=== PATIENT | female | born 1955 | race Caucasian/White ===

== ENCOUNTER → 2023-09-14 10:10 | Outpatient (BNVA) | payer MEDICARE, MEDICAID, SELFPAY | PROVIDERS: Family Provider Family Medicine; PCP Nurse Practitioner Family; Visit Provider Nurse Practitioner Family | DX: E11.9 Type 2 diabetes mellitus without complications (principal); R60.9 Edema, unspecified; Q84.5 Enlarged and hypertrophic nails; R09.02 Hypoxemia; E66.01 Morbid (severe) obesity due to excess calories | CPT/HCPCS: 80053; 80061; 83036; 85025 ==

== ENCOUNTER 2023-11-02 21:37 | Inpatient (IN) | payer MEDICARE, MEDICAID, SELFPAY ==
--- NOTE | 2023-11-02 21:46 | ECG_ITS ---
[facility] Test Date: 2023-11-02 Pat Name: Lizeth Adams Department: Room: Gender: Female Manager [employer]: : 1955 Requested By: Luke Kendrick Order Number: [id number] Reading MD: Alonso Montze M.D. Measurements Intervals [place] Rate: 125 P: 0 W[place]: 0 QRS: 179 QRSD: 113 T: -16 QT: 287 QTc: 414 Interpretive Statements ATRIAL FIBRILLATION WITH RAPID VENTRICULAR RESPONSE ANTEROLATERAL MYOCARDIAL INFARCTION , OF INDETERMINATE AGE [40+ ms Q WAVE IN I/aVL/V3-V6] Compared to ECG 01/26/2019 05:28:42 Myocardial infarct finding now present Sinus bradycardia no longer present Right-axis deviation no longer present T-wave abnormality no longer present Possible ischemia no longer present Electronically Signed On 11-03-2023 14:56:14 SERVICE ORDER EXPEDITER by Alonso Montez M.D. [id number]
--- NOTE | 2023-11-02 21:47 | XRR_ITS ---
PROCEDURE INFORMATION: Exam: XR Chest Exam date and time: 11/02/2023 10:33 PM Age: 68 years old Clinical indication: Dyspnea; Additional info: SOB TECHNIQUE: Imaging protocol: Radiologic exam of the chest. Views: 1 view. COMPARISON: CT angio chest PE protcl [id number] 01/26/2019 2:23 PM FINDINGS: Lungs: Right lung opacities and pleural effusion. Mild pulmonary vascular congestion. Pleural spaces: See Lungs finding. Heart/Mediastinum: Mild cardiomegaly. Bones/joints: No acute abnormality. XR/XR chest 1V portable [id number] IMPRESSION: 1. Right lung opacities and pleural effusion. Recommend CT for better evaluation. 2. Cardiomegaly and mild pulmonary vascular congestion.
--- NOTE | 2023-11-02 21:47 | ED_ITS ---
HPI - General Adult 2 General: Chief complaint: General Medical Stated complaint: not feeling well Time Seen by Provider: 11/02/23 21:39 History of Present Illness: 68-year-old morbidly obese fem deedee presented emergency room via EMS with vague complaints of not feeling well, diffuse body swelling and shortness of breath for the past few days. Patient also revealed some cough and described the cough as nonproductive cough denies any fever, chills, coughing up blood or vomiting blood. No known sick contact or recent foreign travel. Patient reveals history of congestive heart failure in the past but currently not taking Lasix as prescribed. She denies any abdominal pain nausea or vomiting and no diarrhea. Associated symptoms: Reports dyspnea; Deny chest pain, headache(s), malaise or palpitations Review of Systems 2 General: Reports: 10 or more systems reviewed and unremarkable except in HPI and below Const: Denies: fever(s), chills, body aches, change in appetite, change in weight, fatigue or malaise ENMT: Reports: throat pain Card: Reports: edema, swelling of feet/ankles and dyspnea on exertion; Denies: chest pain, palpitations or pre-syncope Resp: Reports: dyspnea and non-productive cough; Denies: wheezing, stridor, pain on inspiration, change in phlegm color or hemoptysis Musc: Denies: neck pain, back pain, extremity pain, extremity swelling or joint pain Neuro: Denies: headache(s) or numbness in extremities Psych: Denies: anxiety, depression, mood swings or panic attacks PFSH ED 2 PFSH: Medical History Type 2 diabetes mellitus Family History Father Diabetes mellitus, type 2 Grandmother Cancer paternal Social History Smoking and tobacco/nicotine status: current every day tobacco/nicotine user cigarettes Packs smoked per day: 1 Alcohol intake: never Substance/Drug Use: never Adopted: No Caregiver/support person: No Lives independently: Yes service: No Current occupational status: retired and disabled Current gender identity: Female Agree to transfusion: No Physical Exam 2 Const: COMMON NORMALS: no acute distress, average body habitus, patient oriented x3, no limitations, healthy appearing, alert and well nourished HENMT: COMMON NORMALS: normocephalic, atraumatic, hearing grossly normal bilaterally, external ears normal, EAC's normal, TM's normal bilaterally, Normal external nose present, Normal nasal mucous membranes and turbinates present, moist oral mucous membranes, oropharynx normal, dentition normal and gingiva normal HEAD & SCALP: normocephalic and atraumatic NOSE: Normal external nose present and Normal nasal mucous membranes and turbinates present E XTERNAL EAR: Yes external ears normal EXTERNAL AUDITORY CANAL: EAC's normal TYMPANIC MEMBRANE: TM's normal bilaterally Neck/C-Spine: COMMON NORMALS: no JVD Chest: COMMONS NORMALS: normal inspection of the chest, normal palpation of entire chest wall, normal inspection of the breasts and normal palpation of the breasts Breast/axilla inspection: Yes normal inspection of the breasts B REAST/AXILLA PALPATION: Yes normal palpation of the breasts Resp: COMMON NORMALS: percussion normal EFFORT & INSPECTION: No tachypneic, No stridor, No Actively coughing and No retractions AUSCULTATION: rales and diminished lung sounds on the right in the lower lung [place] PERCUSSION: p ercussion normal Cardio: COMMON NORMALS: no JVD, regular rate, S1 normal heart sound present, S2 normal heart sound present, No gallops present (Cardio), No clicks present (Cardio), No murmurs present (Cardio), No rub (Cardio) and Peripheral pulses 2+ throughout PALPATION: normal PMI RATE: regular rate and tachycardic R HYTHM: abnormal rhythm HEART SOUNDS: S1 normal heart sound present and S2 normal heart sound present PERIPHERAL PULSES: Peripheral pulses 2+ throughout GI: COMMON NORMALS: Normal to inspection, nondistended, normoactive bowel sounds present, Soft to palpation, non-tender, No hepatosplenomegaly present, no masses and no bruits INSPECTION: Yes Abdominal wall edema, Yes Anasarca and Yes abdominal distension PALPATION: Yes Soft to palpation and Yes No hepatosplenomegaly present Extremity: NARRATIVE EXTREMITY EXAM: Lower extremity with pitting edema +2 pitting edema diffusely. Neuro: COMMON NORMALS: patient oriented x3 SENSORIUM/ORIENTATION: Yes alert Skin: COMMON NORMALS: no rashes or lesions noted, no wounds, turgor normal, no jaundice, no petechiae and no mottling GENERAL SKIN EXAM: no rashes or lesions noted and turgor normal Course 2 Reevaluation(s): Reevaluation #1: Patient remained stable on 4 L of oxygen by nasal cannula. Patient responded very well to the Lasix. Consultations: Consultation #1: I discussed patient with the hospitalist will admit for further evaluation and treatment. Vital Signs: Vital signs: Vital Signs Temperature 97.5 F L 11/02/23 21:48 Pulse Rate 110 H 11/03/23 04:20 Respiratory Rate 18 11/03/23 04:20 Blood Pressure 146/89 11/03/23 04:20 Pulse Oximetry 90 11/03/23 04:20 Oxygen Delivery Me thod Nasal Cannula 11/03/23 04:20 Oxygen Flow Rate 4 11/03/23 04:20 MDM - General Adult Medical Decision Making Patient made comfortable emergency room and had extensive workup including CBC, CMP, cardiac enzymes, EKG, chest x-ray. Patient was treated with IV Lasix Kayexalate Cardizem bolus and a drip. Discussed patient with the hospitalist patient will be admitted for further evaluation and treatment. Patient heart rate did improved with current treatment. Differential Diagnosis CHF, pneumonia, dissection, COVID, abnormal electrolyte, pleural effusion, pneumonitis, Lab Data 11/02/23 21:59 11/02/23 21:59 Radiology Impressions Chest X-Ray 11/02/23 21:47 IMPRESSION: 1. Right lung opacities and pleural effusion. Recommend CT for better evaluation. 2. Cardiomegaly and mild pulmonary vascular congestion. Laboratory Results WBC 7.87 10^3/uL (3.29-11.43) 11/02/23 21:59 RBC 4.56 10^6/uL (3.85-5.65) 11/02/23 21:59 Hgb 13.40 g/dL (11.27-16.99) 11/02/23 21:59 Hct 45.1 % (36-47) 11/02/23 21:59 MCV 98.9 fl (85-98) H 11/02/23 21:59 MCH 29.4 pg (27-33) 11/02/23 21:59 MCHC 29.7 g/dL (30-55) L 11/02/23 21:59 RDW 15.9 % (12.1-15.1) H 11/02/23 21:59 Plt Count 320 10^3/cmm (157-399) 11/02/23 21:59 MPV 11.1 fL (7.4-10.4) H 11/02/23 21:59 Neut % (Auto) 76.3 % 11/02/23 21:59 Lymph % (Auto) 12.5 % 11/02/23 21:59 [place] % (Auto) 9.7 % 11/02/23 21:59 Eos % (Auto) 0.6 % 11/02/23 21:59 Baso % (Auto) 0.5 % 11/02/23 21:59 Neut # (Auto) 6.01 10^3/uL (1.8-7.7) 11/02/23 21:59 Lymph # (Auto) 1.0 10^3/uL (0.8-4.8) 11/02/23 21:59 [place] # (Auto) 0.8 10^3/uL (0.2-0.9) 11/02/23 21:59 Eos # (Auto) 0.1 10^3/uL (0.0-0.8) 11/02/23 21:59 Baso # (Auto) 0.0 10^3/uL (0.0-0.1) 11/02/23 21:59 Nucleated RBC % (auto) 0 % 11/02/23 21:59 Nucleated RBCs # 0.0 /100WBC 11/02/23 21:59 PT 14.70 SECONDS (12.1-14.9) 11/02/23 21:59 INR 1.12 (0.8-1.2) 11/02/23 21:59 APTT 30.9 SECONDS (23.9-36.7) 11/02/23 21:59 Sodium 135 mmol/L (136-145) L 11/02/23 21:59 Potassium 5.4 mmol/L (3.5-5.1) H 11/02/23 21:59 Chloride 98 mmol/L (98-107) 11/02/23 21:59 Carbon Dioxide 29 mmol/L (22-29) 11/02/23 21:59 Anion Gap 13.4 (5-19) 11/02/23 21:59 BUN 37 mg/dL (8-23) H 11/02/23 21:59 Creatinine 1.5 mg/dL (0.5-0.9) H 11/02/23 21:59 GFR Calculation 34.3 mL/min (90-130) L 11/02/23 21:59 Glucose 133 mg/dL (65-115) H 11/02/23 21:59 Estimat Average Glucose 140 11/02/23 21:59 Hemoglobin A1c 6.5 % (4.0-6.0) H 11/02/23 21:59 Calculated Osmolality 291 mOsm/kg (285-295) 11/02/23 21:59 Calcium 8.8 mg/dL (8.5-10.5) 11/02/23 21:59 Total Bilirubin 0.2 mg/dL (0.15-1.2) 11/02/23 21:59 AST 60 U/L (0-32) H 11/02/23 21:59 ALT 66 U/L (0-33) H 11/02/23 21:59 Alkaline Phosphatase 175 U/L (35-105) H 11/02/23 21:59 Troponin T Baseline 34 ng/L (0-10) H 11/02/23 21:59 Troponin T 120 Minute 36.81 ng/L (0-10) H 11/02/23 23:55 Delta Troponin T 2.81 ABS# (0-10) 11/02/23 23:55 NT-Pro-B Natriuret Pep 56699 pg/mL (0-125) H 11/02/23 21:59 Total Protein 6.3 g/dL (6.6-8.7) L 11/02/23 21:59 Albumin 3.4 g/dL (3.5-5.2) L 11/02/23 21:59 Globulin 2.9 g/dL (1.3-4.6) 11/02/23 21:59 Coronavirus 229E (PCR) Not detected (NOT DETECT) 11/02/23 22:26 Hepatitis A IgM Ab Non-reactive (Nonreactive) 11/02/23 21:59 Hep Bs Antigen Non-reactive (Nonreactive) 11/02/23 21:59 Hep Bs Antibody < 3.5 (11.5-1000) L 11/02/23 21:59 Hep B Core Total Ab Non-reactive (Nonreactive) 11/02/23 21:59 Hepatitis C Antibody Non-reactive (Nonreactive) 11/02/23 21:59 SARS-CoV-2 (PCR) Not detected (NOT DETECT) 11/02/23 22:26 XR interpretation done by ED provider, pending radiology final review EKG Data EKG 1: Interpretation: Atrial fibrillation with RVR with rate of 125. QRS duration 131 QT [address] changes. Computer generated interpretation: Chest X-Ray 11/02/23 21:47 IMPRESSION: 1. Right lung opacities and pleural effusion. Recommend CT for better evaluation. 2. Cardiomegaly and mild pulmonary vascular congestion. Critical Care Time 2 Critical Care Time: Critical Care Time: Yes Total Critical Care Time: 40 Attestation: Time spent managing patient emergency room including giving IV Cardizem bolus and drip. Time spent reviewing past medical history. Time spent discussing patient with the hospitalist. Time spent reevaluating patient after each treatment. Discharge Plan Discharge Patient Disposition: Admitted As Inpatient Admit Provider: Chanelle Bruner Clinical Impression: Morbid obesity, Anasarca, Transaminitis Atrial fibrillation Qualifiers: Atrial fibrillation type: persistent (not longstanding) Qualified Code(s): I 48.19 - Other persistent atrial fibrillation CHF (congestive heart failure) Qualifiers: Heart failure chronicity: acute on chronic Condition: Stable Coding Level of Care Code ED Classified Advertising Supervisor for Brenda Snow
[2023-11-02 21:48] VITALS: BP 120/86; PULSE 119; RESP 16; TEMP 36.4; O2SAT 91
[2023-11-02] MEDS: FUROsemide 10 mg/mL SDV 10mL 60 MG IVP (22:20)
[2023-11-02 22:24] VITALS: BP 120/104; PULSE 123; RESP 24; O2SAT 92
[2023-11-02 22:26] LABS: Basophils % 0.5 %; Eosinophils # 0.1 10^3/uL (0.0-0.8); Eosinophils % 0.6 %; Hematocrit 45.1 % (36-47); Lymphocytes % 12.5 %; Mean Corpuscular HGB Conc 29.7 g/dL (30-55); Mean Corpuscular Hemoglobin 29.4 pg (27-33); Mean Corpuscular Volume 98.9 fl (85-98); Mean Platelet Volume 11.1 fL (7.4-10.4); Monocytes # 0.8 10^3/uL (0.2-0.9); Monocytes % 9.7 %; Neutrophils # 6.01 10^3/uL (1.8-7.7); Neutrophils % 76.3 %; Nucleated Red Blood Cells % 0 %; Platelet Count 320 10^3/cmm (157-399); Red Blood Count 4.56 10^6/uL (3.85-5.65); Red Cell Distribution Width 15.9 % (12.1-15.1); White Blood Count 7.87 10^3/uL (3.29-11.43)
[2023-11-02 22:30] VITALS: BP 121/63; PULSE 122; RESP 20; O2SAT 95
[2023-11-02] MEDS: dilTIAZem 5 mg/mL SDV 5 mL 20 MG IVP (22:43)
[2023-11-02 22:48] LABS: Troponin(5th) Baseline 34 ng/L (0-10)
[2023-11-02 22:49] LABS: INR 1.12 (0.8-1.2)
[2023-11-02 22:50] LABS: Partial Thromboplastin Time 30.9 SECONDS (23.9-36.7)
[2023-11-02 22:57] LABS: Alanine Aminotransferase 66 U/L (0-33); Albumin Level 3.4 g/dL (3.5-5.2); Alkaline Phosphatase 175 U/L (35-105); Anion Gap 13.4 (5-19); Aspartate Amino Transferase 60 U/L (0-32); Blood Urea Nitrogen 37 mg/dL (8-23); Calcium 8.8 mg/dL (8.5-10.5); Carbon Dioxide 29 mmol/L (22-29); Chloride 98 mmol/L (98-107); Globulin 2.9 g/dL (1.3-4.6); Glomerular Filtration Rate 34.3 mL/min (90-130); Glucose 133 mg/dL (65-115); NT Pro B Type Natriuretic Pept 16612 pg/mL (0-125); Osmolality Calculated 291 mOsm/kg (285-295); Potassium 5.4 mmol/L (3.5-5.1); Sodium 135 mmol/L (136-145); Total Bilirubin 0.2 mg/dL (0.15-1.2); Total Protein 6.3 g/dL (6.6-8.7)
[2023-11-03] VITALS (81 sets, daily range): BP systolic 83–148; BP diastolic 46–98; PULSE 70–120; RESP 0–28; TEMP 35.8–36.3; O2SAT 76–100; BMI 43.6
[2023-11-03 00:14] LABS: Adenovirus Not Detected (NOT DETECT); Chlamydia Pneumoniae Not Detected (NOT DETECT); Coronavirus 229E,HKU1,NL63,OC4 Not Detected (NOT DETECT); Human Metapneumovirus Not Detected (NOT DETECT); Human Rhinovirus/Enterovirus Not Detected (NOT DETECT); Influenza A Not Detected (NOT DETECT); Influenza A H1 Not Detected (NOT DETECT); Influenza A H1-2009 Not Detected (NOT DETECT); Influenza A H3 Not Detected (NOT DETECT); Influenza B Not Detected (NOT DETECT); Mycoplasma Pneumoniae Not Detected (NOT DETECT); Parainfluenza Virus Type 1 Not Detected (NOT DETECT); Parainfluenza Virus Type 2 Not Detected (NOT DETECT); Parainfluenza Virus Type 3 Not Detected (NOT DETECT); Parainfluenza Virus Type 4 Not Detected (NOT DETECT); Respiratory Syncytial Virus A Not Detected (NOT DETECT); Respiratory Syncytial Virus B Not Detected (NOT DETECT); SARS-COV-2 Not Detected (NOT DETECT)
[2023-11-03] MEDS: dilTIAZem 100 MG in sodium chloride 0.9% (add-van) 100 ML IV (00:17)
[2023-11-03 00:21] LABS: Troponin 5 2HR 36.81 ng/L (0-10); Troponin 5 2HR Delta 2.81 ABS# (0-10)
[2023-11-03] MEDS: sodium polystyrene sulfonate 15 gm/60 mL Btl PO (01:15)
--- NOTE | 2023-11-03 03:23 | USCV_ITS ---
Lizeth Adams Age: 68 Gender: F : 1955 Exam Date: 11/03/2023 03:46 Ordering Phys: Chanelle Bruner MD Technologist: MIR Exam Location: [facility] [place] Indication: new Afib, CHF. morbid obesity. No history of cardiac intervention per patient. BP: 91 / 70 HR: 55 Rhythm: Atrial fibrillation Technical Quality: Adequate with [employer] MEASUREMENTS (Male / Female) Normal Values 2D ECHO LV Diastolic Diameter PLAX 4.9 cm 4.2 - 5.9 / 3.9 - 5.3 cm LV Systolic Diameter PLAX 4.0 cm IVS Diastolic Thickness 1.5 cm 0.6 - 1.0 / 0.6 - 0.9 cm IVS Systolic Thickness 1.7 cm LVPW Diastolic Thickness 1.1 cm 0.6 - 1.0 / 0.6 - 0.9 cm LVPW Systolic Thickness 1.4 cm LVOT Diameter 1.6 cm LV Ejection Fraction 2D Teich 40.5 % LV Ejection Fraction MOD 2C 54.0 % LV Ejection Fraction 2C AL 53.3 % LA Diameter 5.1 cm LA Width 5.3 cm LA Height 6.3 cm RA Width 6.0 cm RA Height 6.2 cm Aorta at Sinotubular Diameter 2.7 cm IVC Diameter 2.9 cm M-MODE Aortic Annulus Diameter 2.5 cm LA Ao Ratio MM 2.0 MV E Point Septal Separation 0.8 cm DOPPLER AV Peak Velocity 139.0 cm/s LVOT Peak Velocity 65.0 cm/s AV Area Cont Eq vti 1.2 cm squared AV Area Cont Eq pk 1.0 cm squared MV Area PHT 5.1 cm squared MV E' Velocity 88.5 cm/s Mitral E to MV E' Ratio 16.3 Mitral E to LV E' Lateral Ratio 13.3 Mitral E to LV E' Septal Ratio 21.4 TR Peak Velocity 264.3 cm/s TR Peak Gradient 27.9 mmHg TV Peak E Velocity 45.0 cm/s Right Atrial Pressure 15.0 mmHg Pulmonary Artery Systolic Pressu 42.9 mmHg PV Peak Velocity 106.0 cm/s FINDINGS Left Ventricle Left ventricle is normal in size. LV systolic function is normal with EF 50 to 55%. No regional wall motion abnormalities are seen. Right Ventricle Dilated and mildly hypokinetic Right Atrium Dilated Left Atrium Dilated Mitral Valve Severe mitral annular calcification. Aortic Valve Aortic valve is thickened. No significant stenosis. Tricuspid Valve Mild tricuspid regurgitation. RVSP is 50-55mmHg. This is consistent with moderate pulmonary hypertension. Pulmonic Valve Mild pulmonic regurgitation. Pericardium Normal Aorta Normal in size IVC Dilated CONCLUSIONS LV systolic function is normal with EF 50 to 55%. RV is dilated and mildly hypokinetic. Severe biatrial enlargement. Severe mitral annular calcification Mild tricuspid regurgitation. Moderate pulmonary hypertension Mild pulmonic regurgitation. IVC is dilated. Compared to prior echocardiogram from 2019, LV systolic function has decreased. RV is also dilated and hypokinetic now with moderate pulmonary hypertension Alonso Montez MD (Electronically Signed) Final Date: 03 November 2023 16:55 S
--- NOTE | 2023-11-03 03:26 | P.HP_ITS ---
Providers/Chief Complaint 2 Admitting Physician: Chanelle Bruner MD Primary Care Provider: Moshe Roberson Chief Complaint: not feeling well History of Present Illness Lizeth Adams is a 68 year old female With a past medical history of diabetes mellitus, prescribed metformin but doesnt take it, COPD, not typically on inhalers or home oxygen, presents to the hospital with 1 to 2 months of worsening dyspnea. Patient states that at baseline she ambulates with a walker but recently because of worsening dyspnea she has barely been able to get out of bed and take a few steps. She also has orthopnea, unable to lie flat, sits in a recliner most of the day. She has checked her oxygen via pulse oximetry at home and states that it usually ranges in the 80s at rest. She often has to take multiple deep breaths to get her oxygenation to reach about 90%. She presented to the emergency room today because of worsening shortness of breath, states that she was not able to catch her breath even at rest today. Also felt palpitations. Upon ER arrival she was found to be in A-fib with RVR with heart rate ranging between 1 20-1 40s. She received a Cardizem push and was started on Cardizem infusion. She has overall gross anasarca. She reports a chronic lower extremity swelling, also worsened over the last 2 months. Denies any cough fever or chills. She is a chronic smoker, smokes about a pack every day. Review of Systems 2 General: Reports: 10 or more systems reviewed and unremarkable except in HPI and below Const: Denies: fever(s), chills or body aches Eyes: Denies: change in vision, blurry vision or photophobia ENMT: Reports: hoarseness; Denies: throat pain, enlarged tonsils, odynophagia or nasal congestion Card: Denies: chest pain, palpitations, irregular heart rhythm, edema, swelling of feet/ankles, lightheadedness, pre-syncope, dyspnea on exertion or orthopnea Resp: Denies: dyspnea, productive cough, non-productive cough, wheezing, stridor, pain on inspiration, change in phlegm color, hemoptysis or chest congestion GI: Denies: abdominal pain, nausea, vomiting, hematemesis, coffee ground emesis, dysphagia, heartburn, diarrhea, constipation, GI cramping, change in stool character, hematochezia or melena : Denies: flank pain, difficulty voiding, dysuria, urinary frequency, urinary urgency, urinary hesitancy or hematuria Musc: Denies: neck pain, back pain, extremity pain, joint swelling, joint warmth or deformity Neuro: Denies: headache(s), numbness in extremities, weakness in extremities, sensory changes, difficulty walking, frequent falls, dizziness, vertigo, behavioral changes, Slurred speech present or seizure-like activity Psych: Denies: anxiety, depression, suicidal ideation or homicidal ideation Endo: Denies: polyuria, polydipsia, tired all the time, cold intolerance or hot flashes Will/Lymph: Denies: easy bruising or easy bleeding Medications/Allergies Home Medications Medication Instructions Recorded Confirmed Last Taken Type aspirin 325 mg tablet See Rx Instructions PO BID 09/14/23 09/14/23 Unknown History bisacodyl 5 mg tablet,delayed 5 mg PO DAILY 09/14/23 09/14/23 Unknown History release (Laxative (bisacodyl)) Allergies Allergy/AdvReac Type Severity Reaction Status Date / Time iodine Allergy Unknown Verified 11/02/23 22:58 PFSH Acute 2 PFSH: Medical History Type 2 diabetes mellitus Family History Father Diabetes mellitus, type 2 Grandmother Cancer paternal Social History Smoking and tobacco/nicotine status: current every day tobacco/nicotine user cigarettes Packs smoked per day: 1 Alcohol intake: never Substance/Drug Use: never Adopted: No Caregiver/support person: No Lives independently: Yes service: No Current occupational status: retired and disabled Current gender identity: Female Agree to transfusion: No Vitals/I&O/Wt Last Vital Signs Temp 97.5 F L 11/02/23 21:48 Pulse 111 H 11/03/23 02:25 Resp 17 11/03/23 00:00 BP 91/70 11/03/23 00:00 Pulse Ox 96 11/03/23 00:00 O2 Del Method Nasal Cannula 11/03/23 00:45 O2 Flow Rate 4 11/02/23 22:24 11/02/23 11/02/23 11/03/23 14:59 22:59 06:59 Intake Total 4.417 / 4.417 Balance 4.417 / 4.417 Weight last 48 hrs Weight 141.974 kg Weight 136.078 kg Physical Exam 2 Narrative: General: AO x3, tachypneic with minimal conversation HEENT: PERRLA, pupils bilaterally equal and reactive, pallors not present Chest: Bilateral crackles and wheezing to auscultation CVS: S1-S2 regular, no murmurs, no tachycardia, no gallops, no rubs Abdomen: Soft, nontender, no organomegaly, bowel sounds present Neuro: No focal deficits, no facial deformity, AO x3, power 5/5 in all limbs Extremities: Bilateral lower extremity pitting edema Data 11/02/23 21:59 11/02/23 21:59 Other Labs: Radiology Impressions Chest X-Ray 11/02/23 21:47 IMPRESSION: 1. Right lung opacities and pleural effusion. Recommend CT for better evaluation. 2. Cardiomegaly and mild pulmonary vascular congestion. Laboratory Results WBC 7.87 10^3/uL (3.29-11.43) 11/02/23 21:59 RBC 4.56 10^6/uL (3.85-5.65) 11/02/23 21:59 Hgb 13.40 g/dL (11.27-16.99) 11/02/23 21:59 Hct 45.1 % (36-47) 11/02/23 21:59 MCV 98.9 fl (85-98) H 11/02/23 21:59 MCH 29.4 pg (27-33) 11/02/23 21:59 MCHC 29.7 g/dL (30-55) L 11/02/23 21:59 RDW 15.9 % (12.1-15.1) H 11/02/23 21:59 Plt Count 320 10^3/cmm (157-399) 11/02/23 21:59 MPV 11.1 fL (7.4-10.4) H 11/02/23 21:59 Neut % (Auto) 76.3 % 11/02/23 21:59 Lymph % (Auto) 12.5 % 11/02/23 21:59 [place] % (Auto) 9.7 % 11/02/23 21:59 Eos % (Auto) 0.6 % 11/02/23 21:59 Baso % (Auto) 0.5 % 11/02/23 21:59 Neut # (Auto) 6.01 10^3/uL (1.8-7.7) 11/02/23 21:59 Lymph # (Auto) 1.0 10^3/uL (0.8-4.8) 11/02/23 21:59 [place] # (Auto) 0.8 10^3/uL (0.2-0.9) 11/02/23 21:59 Eos # (Auto) 0.1 10^3/uL (0.0-0.8) 11/02/23 21:59 Baso # (Auto) 0.0 10^3/uL (0.0-0.1) 11/02/23 21:59 Nucleated RBC % (auto) 0 % 11/02/23 21:59 Nucleated RBCs # 0.0 /100WBC 11/02/23 21:59 PT 14.70 SECONDS (12.1-14.9) 11/02/23 21:59 INR 1.12 (0.8-1.2) 11/02/23 21:59 APTT 30.9 SECONDS (23.9-36.7) 11/02/23 21:59 Sodium 135 mmol/L (136-145) L 11/02/23 21:59 Potassium 5.4 mmol/L (3.5-5.1) H 11/02/23 21:59 Chloride 98 mmol/L (98-107) 11/02/23 21:59 Carbon Dioxide 29 mmol/L (22-29) 11/02/23 21:59 Anion Gap 13.4 (5-19) 11/02/23 21:59 BUN 37 mg/dL (8-23) H 11/02/23 21:59 Creatinine 1.5 mg/dL (0.5-0.9) H 11/02/23 21:59 GFR Calculation 34.3 mL/min (90-130) L 11/02/23 21:59 Glucose 133 mg/dL (65-115) H 11/02/23 21:59 Calculated Osmolality 291 mOsm/kg (285-295) 12/28/23 21:59 Calcium 8.8 mg/dL (8.5-10.5) 11/02/23 21:59 Total Bilirubin 0.2 mg/dL (0.15-1.2) 11/02/23 21:59 AST 60 U/L (0-32) H 11/02/23 21:59 ALT 66 U/L (0-33) H 11/02/23 21:59 Alkaline Phosphatase 175 U/L (35-105) H 11/02/23 21:59 Troponin T Baseline 34 ng/L (0-10) H 11/02/23 21:59 Troponin T 120 Minute 36.81 ng/L (0-10) H 11/02/23 23:55 Delta Troponin T 2.81 ABS# (0-10) 11/02/23 23:55 NT-Pro-B Natriuret Pep 30250 pg/mL (0-125) H 11/02/23 21:59 Total Protein 6.3 g/dL (6.6-8.7) L 11/02/23 21:59 Albumin 3.4 g/dL (3.5-5.2) L 11/02/23 21:59 Globulin 2.9 g/dL (1.3-4.6) 11/02/23 21:59 Coronavirus 229E (PCR) Not detected (NOT DETECT) 11/02/23 22:26 SARS-CoV-2 (PCR) Not detected (NOT DETECT) 11/02/23 22:26 A&P Assessment and plan (1) CHF (congestive heart failure): Qualifiers: Heart failure chronicity: acute on chronic (2) Atrial fibrillation: Qualifiers: Atrial fibrillation type: persistent (not longstanding) Qualified Code(s): I48.19 - Other persistent atrial fibrillation (3) Morbid obesity: (4) Transaminitis: (5) Uncontrolled diabetes mellitus: (6) Hypoxia: (7) Anasarca: Plan 68-year-old lady with a past medical history of diabetes mellitus, reported history of COPD presenting to the ER today with 2 months of worsening dyspnea and anasarca. Clinically patient appears to have decompensated heart failure. Elevated BNP and chest x-ray with bilateral pulmonary edema and pleural effusion. Unable to comment on the type of chronicity at this time as this is a new diagnosis for the patient. Check echocardiogram Received Lasix 60 mg IV push in the emergency room, continue 40 mg IV every 12 hours. Bautista catheter has been placed to measure accurate output. Monitor kidney function closely. EKG today showing A-fib with RVR with heart rate ranging between 1 20-1 40 for which patient has been started on Cardizem gtt. which we will continue. Start overlap with p.o. metoprolol for control of heart rate Check echocardiogram Baseline troponin at 34, 2 hours at 36 without significant delta at 2 hours. Pending 6-hour trend. [id number] 2 score at 4 based on currently known risk factors, start full dose anticoagulation with Lovenox 1 mg/kg subcutaneously every 12 hours. Likely transition to DOAC's once closer to discharge. Noted to have bilateral wheezing on exam, suspect this may be related to pulmonary edema but patient also reports a history of COPD. Add DuoNeb scheduled nebulization Supplemental O2 to keep saturation 90 to 92%. Currently needing 4 L/min supplemental O2. Possible that obesity hypoventilation may additionally be contributing to her hypoxia. Current BMI at 43. Check HbA1c and TSH insulin sliding scale DVT prophylaxis: Currently on full dose anticoagulation Full code Attestations 2 Medical Necessity Statement*: Greater than 2 midnight admission is anticipated for management of A-fib with RVR, newly diagnosed heart failure, need for IV diuresis and further cardiac evaluation. Coding Level of Care Code Acute Code for Chg Fwd High MDM includes number and complexity of problems actively addressed during encounter, amount and/or complexity of data reviewed/ordered and described risk of complication, morbidity or mortality of management as documented Diagnoses CHF (congestive heart failure) I50.9 Heart failure chronicity: acute on chronic Atrial fibrillation I48.19 Atrial fibrillation type: persistent (not longstanding) Morbid obesity E66.01 Transaminitis R74.01 Uncontrolled diabetes mellitus Hypoxia R09.02 Anasarca R60.1
[2023-11-03] MEDS: enoxaparin 80 mg/0.8 mL Syringe 140 MG SUBCUT (03:52)
[2023-11-03] MEDS: FUROsemide 10 mg/mL SDV 4mL 40 MG IVP (03:52)
[2023-11-03 03:53] LABS: Troponin 5 6HR 35.99 ng/L (0-10); Troponin 5 6HR Delta 1.99 ng/L (0-12)
[2023-11-03 04:06] LABS: Estmated Average Glucose 140; Hemoglobin A1C 6.5 % (4.0-6.0)
[2023-11-03 04:17] LABS: Hepatitis A Antibody IgM Non-Reactive (Nonreactive); Hepatitis B Core AB, Total Non-Reactive (Nonreactive); Hepatitis B Surface AB < 3.5 (11.5-1000); Hepatitis B Surface Antigen Non-Reactive (Nonreactive); Hepatitis C Virus Antibody Non-Reactive (Nonreactive)
[2023-11-03] MEDS: ipratropium-albuterol 3 mL Neb INHALATION ×2 (04:51→08:13)
[2023-11-03] MEDS: metoprolol tartrate 25 mg Tablet PO (04:55)
[2023-11-03] MEDS: perflutren protein-a microsphr 0.22 mg/mL SDV 3 mL IV (05:50)
[2023-11-03 07:41] LABS: Glucose Point of Care 112 mg/dL (70-110)
[2023-11-03 09:28] LABS: ABG PH Result 7.28 (7.35-7.45); Alveolar-Arterial Oxygen Gradi 13.7 mmHg (5-10); Base Excess ABG 1.5 mmol/L (-2.0-2.0); Blood Gas Allen Test Pos; Blood Gas Operator Identificat CAK; Blood Gas Sample Site Brachial, left; Blood Gas Sample Type Arterial; Carboxyhemoglobin 1.3 %THgb (0.4-20.1); HCO3 ABG 29.8 mmol/L (22-26); Ionized Calcium Level - ABG 1.1 mmol/L (1.1-1.4); Methemoglobin 0.3 % (0.4-1.5); Oxygen Device NC; Oxygen Saturation ABG 94.6; PO2 ABG 75.4 mmHg (80.0-100.0); PO2 FiO2 Ratio Arterial Blood 0; Potassium Level - ABG 4.7 mmol/L (3.5-5.0)
--- NOTE | 2023-11-03 09:47 | PC.NURSE ---
Upon morning assesment, patient can answer all orientation questions correctly and is alert. However, she is obviously confused. Repeated questioning, forgets what she is doing in the middle of tasks, forgot how to use her own cell phone. Nurse alerted Dr Suarez and received orders for blood gas.
[2023-11-03] MEDS: pantoprazole DR 40 mg Tablet PO (09:54)
[2023-11-03 10:42] LABS: Basophils # 0.1 10^3/uL (0.0-0.1); Basophils % 0.5 %; Eosinophils % 0.1 %; Hematocrit 45.8 % (36-47); Lymphocytes # 0.7 10^3/uL (0.8-4.8); Lymphocytes % 7.4 %; Mean Corpuscular HGB Conc 29.3 g/dL (30-55); Mean Corpuscular Hemoglobin 29.6 pg (27-33); Mean Corpuscular Volume 101.3 fl (85-98); Mean Platelet Volume 10.7 fL (7.4-10.4); Monocytes # 0.8 10^3/uL (0.2-0.9); Neutrophils # 7.56 10^3/uL (1.8-7.7); Neutrophils % 82.6 %; Nucleated Red Blood Cells % 0 %; Platelet Count 290 10^3/cmm (157-399); Red Blood Count 4.52 10^6/uL (3.85-5.65); Red Cell Distribution Width 15.8 % (12.1-15.1); White Blood Count 9.16 10^3/uL (3.29-11.43)
--- NOTE | 2023-11-03 10:43 | CTR_ITS ---
PROCEDURE INFORMATION: Exam: CT Chest Without Contrast; Diagnostic Exam date and time: 11/03/2023 12:19 PM Age: 68 years old Clinical indication: Other: Pna, hypoxia TECHNIQUE: Imaging protocol: Diagnostic computed tomography of the chest without contrast. Radiation optimization: All CT scans at this facility use at least one of these dose optimization techniques: automated exposure control; mA and/or kV adjustment per patient size (includes targeted exams where dose is matched to clinical indication); or iterative reconstruction. REPORTING DATA: Count of CT and Cardiac NM exams in prior 12 months: This patient has received 0 known CTs and 0 known cardiac nuclear medicine studies in the 12 months prior to the current study. COMPARISON: CR (CHEST, ) 11/02/2023 10:33 PM RADIATION DOSE METRICS: Total DLP (mGy-cm): 647.37 FINDINGS: Limitations: Motion artifact and beam hardening. Imaging did not occur during deep inspiration. Thyroid: Thyroid gland is not enlarged. Trachea: Imaged portions of the distal trachea, as well as right and left mainstem bronchi, are patent. Lungs: Imaged portions of the distal trachea as well as right and left mainstem bronchi are patent.2 there is severe volume loss in the right middle and lower lobe with atelectasis/consolidation noted. A 1.2 cm focal density abutting the pleural surface is present in the right lung apex (series 5, image 7) which may represent a nodule or airspace process. A newly demonstrated 7 mm left upper lobe nodule (series 5, image 13) is present immediately adjacent to the fissure and is also new from previous. A 6 mm somewhat nodular density is also present in the left lower lobe laterally at the costophrenic angle (series 5, image 34) new from previous. A 5 mm calcification is demonstrated in the left lingula and suggests a granuloma. However within the right lower lobe, opacity is confluent with the right hilum limiting assessment. Pleural spaces: A moderate-sized pleural effusion is present on the right with a proximally 3 cm depth posteriorly Heart: Cardiomegaly. Calcification is also associated with the mitral valve. No pericardial effusion. Coronary arteries: Coronary artery atherosclerotic calcification. Lymph nodes: A 1 cm right axillary node is present. There are similarly sized left axillary nodes and a 1 cm upper left posterior breast node or mass (series 4, image 20) further assessment by mammography is recommended. Within the limits of noncontrast technique, no definite mediastinal or hilar adenopathy is identified. Vasculature: The thoracic aorta is not enlarged but does demonstrate atherosclerotic calcification. Diaphragm: Small hiatal hernia. Intraperitoneal space: Limited assessment of the upper abdomen demonstrates moderate volume of free fluid in the perihepatic space. Bones/joints: Moderate upper thoracic kyphosis and moderate multilevel degenerative changes. Mild chronic appearing anterior wedge compression deformity of several adjacent midthoracic vertebral bodies. Soft tissues: The breasts are not visualized in their entirety but there is generalized increased attenuation noted throughout much of the right breast and axilla. CT/CT chest wo con [id number] IMPRESSION: 1. Moderate increased attenuation throughout the visualized right breast extending into the axilla which may relate to edema or inflammatory/neoplastic process. Correlation with clinical findings is recommended . Prominent bilateral axillary nodes, left breast 1 cm nodule or node. Mammography recommended. 2. Fairly marked volume loss within the right middle and lower lobes with opacities favored to represent atelectasis although pneumonia or other process can not be completely excluded. As this is confluent with the right hilum , it limits assessment for hilar adenopathy 3. Pulmonary nodules as noted above. For patients at low risk (minimal or absent history of smoking and of other known risk factors), recommend CT Chest at 3-6 months, then consider CT Chest at 18-24 months. For patients at high risk (history of smoking or of other known risk factors), recommend CT Chest at 3-6 months, then CT Chest at 18-24 months. (Reference: Shila) 4. Moderate-sized right-sided pleural effusion, contributing to middle and lower lobe atelectasis. Please see above additional comments References: Shila Palacios et al. Guidelines for Management of Incidental Pulmonary Nodules Detected on CT Images: From the Fleischner Society 2017. Radiology. 2017;284(1):228-243.
[2023-11-03] MEDS: heparin 5,000 unit/mL INJ 1 mL IV (11:21)
[2023-11-03 11:24] LABS: Alanine Aminotransferase 60 U/L (0-33); Albumin Level 3.1 g/dL (3.5-5.2); Alkaline Phosphatase 164 U/L (35-105); Aspartate Amino Transferase 46 U/L (0-32); Blood Urea Nitrogen 38 mg/dL (8-23); Calcium 8.5 mg/dL (8.5-10.5); Carbon Dioxide 25 mmol/L (22-29); Chloride 100 mmol/L (98-107); Globulin 3.7 g/dL (1.3-4.6); Glomerular Filtration Rate 31.9 mL/min (90-130); Glucose 169 mg/dL (65-115); Iron 28 ug/dL (37-145); Osmolality Calculated 297 mOsm/kg (285-295); Percent Saturation 9.7 % (20-50); Sodium 137 mmol/L (136-145); Thyroid Stimulating Hormone 3.02 uIU/mL (0.27-4.20); Total Bilirubin 0.4 mg/dL (0.15-1.2); Total Iron Binding Capacity 287 mcg/dl; Total Protein 6.8 g/dL (6.6-8.7); Unsaturated Iron Binding 259 ug/dL (112-347); Vitamin B12 1265 pg/mL (232-1245)
[2023-11-03] MEDS: heparin drip 25,000 UNIT/500 ML PREMIX 30 UNIT IV (11:24)
[2023-11-03] MEDS: sodium chloride 0.9% 1,000 ML 75 ML IV (11:26)
[2023-11-03 11:29] LABS: Anion Gap 17.1 (5-19); Potassium 5.1 mmol/L (3.5-5.1)
[2023-11-03] MEDS: budesonide 0.5 mg/2 mL Neb INHALATION ×2 (11:42→20:38)
[2023-11-03] MEDS: ipratropium 0.5 mg/2.5 mL Neb INHALATION ×3 (11:42→20:38)
--- NOTE | 2023-11-03 12:03 | P.PN_ITS ---
Subjective 2 Subjective: Admitted overnight. H&P and labs appreciated. Patient is about to be taken off Cardizem drip. Heart rate maintained in 70s. Blood pressures seem to be running in 90 systolics. Patient had episode of confusion today morning for which ABG was done which showed respiratory acidosis, hypercapnia a and hypoxia. Patient has had around 4 cc output overnight. Has remained afebrile. Blood work appreciated. Vitals/I&O/Wt Last Vital Signs Temp 97.3 F L 11/03/23 09:00 Pulse 73 11/03/23 11:44 Resp 23 H 11/03/23 11:43 BP 93/60 11/03/23 10:00 Pulse Ox 97 11/03/23 11:44 O2 Del Method BiPAP 11/03/23 11:43 O2 Flow Rate 4 11/03/23 09:00 FiO2 30 11/03/23 11:44 11/02/23 11/03/23 11/03/23 22:59 06:59 14:59 Intake Total 4.417 / 4.417 55.542 / 55.542 Output Total 400 / 400 Balance -395.583 / -395.583 55.542 / 55.542 Weight last 48 hrs Weight 141.974 kg Weight 141.974 kg Weight 136.078 kg Physical Exam 2 Narrative: General: No acute distress, AO x3, NC oxygen supplementation, morbidly obese HEENT: PERRLA, pupils bilaterally equal and reactive Chest: Bilateral bronchial breath sounds all over lung fleming, decreased air entry all over lung fleming with diffuse rhonchi Extremity: Bilateral lower limb swelling 1+ up to the knee, old skin changes present consistent with peripheral vascular disease CVS: S1-S2 regular, no murmurs, no tachycardia, no gallops, no rubs Abdomen: Soft, nontender, no organomegaly, bowel sounds present, morbidly obese Neuro: No focal deficits, no facial deformity, AO x3, power 5/5 in all limbs Data 11/03/23 10:20 11/03/23 10:20 A&P Assessment and plan (1) Respiratory acidosis: (2) Acute on chronic respiratory failure with hypoxia and hypercapnia: (3) COPD (chronic obstructive pulmonary disease): (4) Obstructive sleep apnea: (5) CHF (congestive heart failure): Qualifiers: Heart failure chronicity: acute on chronic (6) Atrial fibrillation: Qualifiers: Atrial fibrillation type: persistent (not longstanding) Qualified Code(s): I48.19 - Other persistent atrial fibrillation (7) Acute kidney injury: (8) Hyperkalemia: (9) Type 2 diabetes mellitus: (10) Morbid obesity: (11) Transaminitis: (12) Anasarca: Plan 68-year-old lady with a past medical history of diabetes mellitus, reported history of COPD presenting to the ER today with 2 months of worsening dyspnea and anasarca. Respiratory acidosis: Acute on chronic hypoxic and hypercapnic respiratory failure. Most likely in setting of COPD exacerbation, obstructive sleep apnea noncompliant to BiPAP/CPAP with possibility of congestive heart failure in setting of A-fib with RVR on admission. Patient looks vascularly depleted though does have components of fluid overload with lower limb edema. Patient does have DONNA with mild uremia. Check D-dimer, sputum culture, procalcitonin, urine Legionella, bacterial antigen. Check CT chest without contrast. BiPAP ventilation for now. Start on ipratropium, Xopenex every 6 hours, Pulmicort twice daily. Given diabetes for now we will try to avoid steroids. Will continue to monitor. Even if D-dimer is higher will try to avoid CTA for now given DONNA. Patient already on anticoagulation given atrial fibrillation. Atrial fibrillation: Currently rate controlled. Patient hypotensive. Hold off on Cardizem drip. Continue with metoprolol 25 mg twice daily. Start on midodrine 10 mg 3 times daily. Will discontinue midodrine once blood pressure is better. Isaac Vas score?4. Switch from full dose Lovenox to heparin drip given high body weight. Check echocardiogram. Acute kidney injury: Most likely component of CKD with mild worsening for now. Cardiorenal versus vascular depletion. Patient does have a component of diabetic nephropathy as well. Will give a trial of IV fluids with normal saline at 75 cc/h for 1 bag. Watch for fluid overload. Medical reconciliation done for nephrotoxic drugs. Monitor BMP daily for now. Hyperkalemia resolved for now. Type 2 diabetes mellitus: Patient noncompliant to antidiabetic medications. A1c 6.5. Insulin sliding scale low-dose protocol before meals and at bedtime. Carb consistent diet. Morbid obesity CODE STATUS: Discussed in detail with the patient. Patient does not want any intubation or life support or chest compression. Changed to DNR/DNI. Patient's daughter will be DPOA. Carb consistent cardiac diet Protonix for PUD prophylaxis Heparin drip will suffice for DVT prophylaxis. Attestations 2 Medical Necessity Statement*: Requires further hospitalization for management of respiratory acidosis, acute on chronic hypoxic and hypercapnic respiratory failure in setting of COPD, obstructive sleep apnea, congestive heart failure, atrial fibrillation with rapid ventricular response and DONNA on CKD Diagnoses Respiratory acidosis E87.29 Acute on chronic respiratory failure with hypoxia and hypercapnia J96.21; J96.22 COPD (chronic obstructive pulmonary disease) J44.9 Obstructive sleep apnea G47.33 CHF (congestive heart failure) I50.9 Heart failure chronicity: acute on chronic Atrial fibrillation I48.19 Atrial fibrillation type: persistent (not longstanding) Acute kidney injury N17.9 Hyperkalemia E87.5 Type 2 diabetes mellitus E11.9 Morbid obesity E66.01 Transaminitis R74.01 Anasarca R60.1
[2023-11-03 12:08] LABS: D Dimer 4.11 ug/mLFEU (0-0.59)
[2023-11-03 12:42] LABS: Glucose Point of Care 150 mg/dL (70-110)
[2023-11-03] MEDS: midodrine 5 mg TABLET 10 MG PO ×2 (12:45→16:31)
[2023-11-03] MEDS: insulin lispro 100 unit/1 mL SUBCUT ×3 (12:46→21:00)
--- NOTE | 2023-11-03 13:03 | PC.SOCIAL ---
Pg 2 IMM Explained to pt Pg 2 IMM. No questions voiced. Provided pt a copy. Initialed, dated, & timed a copy & placed in chart.
--- NOTE | 2023-11-03 14:22 | PC.NURSE ---
Protocol for heparin indicates to give 7000unit bolus and to start maintenance rate at 2050 units an hour. Due to patient's obesity and significant difference from ideal body weight, Dr orlando instructed nurse to give smaller bolus and lower starting maintenance rate than protocol, and then continue to titrate per protocol. See MAR for rates.
[2023-11-03] MEDS: levalbuterol 0.63 mg/3 mL Neb INHALATION ×2 (14:30→20:38)
[2023-11-03 15:40] LABS: Blood Urine 3+ (Negative); Glucose Urine UA Trace (Normal); Ketones Urine Negative (Negative); Nitrate Urine Negative (Negative); Protein Urine 3+ (Negative); Urine Appearance Cloudy (CLEAR); Urine Color Yellow (Yellow); pH Urine 5 (5-7)
[2023-11-03 15:41] LABS: Add Urine Culture? Yes; Add Urine Microscopic? YES; Amorphous Sediment Urine 2+ /hpf; Bacteria Urine TRACE /hpf; Bilirubin Urine 1+ (Negative); Leukocyte Esterase Urine Trace (Negative); RBC Urine TOO NUMEROUS TO CNT /hpf (0-2); Squamous Epithelial Cell Urine 0-4 /hpf (0-5); Urobilinogen Urine 4 mg/dL (Negative); WBC Urine 0-4 /hpf (0-5)
[2023-11-03 15:48] LABS: Urine Creatinine 201 mg/dL (28-217)
[2023-11-03 16:13] LABS: Eosinophil Urine No Eosinophils Seen; Urine Eosinophil Count 0 (0-0)
[2023-11-03 16:41] LABS: Glucose Point of Care 125 mg/dL (70-110)
[2023-11-03 16:41] LABS: Glucose Point of Care 167 mg/dL (70-110)
--- NOTE | 2023-11-03 17:03 | PC.NURSE ---
Patient has been on bipap since around 11am. Was off of bipap for briefly for lunch, and occasionally to oral meds. Nurse gave patient another break around 1600. Upon rounding again at 1630 patient is markedly more lethargic. Still able to answer orientation questions and able to protect her own airway, but she cannot stay awake for questioning, cannot hold head up. Nurse placed patient back on bipap and then alerted Dr orlando. Received order for ABG.
--- NOTE | 2023-11-03 17:22 | USR_ITS ---
PROCEDURE INFORMATION: Exam: US Duplex Lower Extremity Veins, Bilateral Exam date and time: 11/03/2023 5:54 PM Age: 68 years old Clinical indication: Edema, localized; Lower extremity, bilateral; Additional info: R/O dvt TECHNIQUE: Imaging protocol: Real-time duplex ultrasound of the bilateral extremities with 2-D acuna scale, color Doppler flow and spectral waveform analysis including responses to compression and other maneuvers (when performed) with image documentation. Complete exam focused on the lower extremity veins. COMPARISON: No relevant prior studies available. FINDINGS: Right deep veins: Unremarkable. The common femoral, femoral, proximal profunda femoral, popliteal, posterior tibial and peroneal veins are patent without thrombus. Normal Doppler waveforms. Normal compressibility and/or augmentation response. Left deep veins: Unremarkable. The common femoral, femoral, proximal profunda femoral, popliteal, posterior tibial and peroneal veins are patent without thrombus. Normal Doppler waveforms. Normal compressibility and/or augmentation response. Superficial veins: Bilateral saphenofemoral junctions are patent without thrombus. Soft tissues: Diffuse subcutaneous edema. US/[place] [id number] IMPRESSION: No sonographic evidence of deep vein thrombosis.
[2023-11-03 17:23] LABS: ABG PH Result 7.27 (7.35-7.45); Arterial Blood Gas Hematocrit 39.3 % (37-47); Base Excess ABG 2.3 mmol/L (-2.0-2.0); Blood Gas Allen Test Pos; Blood Gas Sample Type Arterial; HCO3 ABG 30.9 mmol/L (22-26); HGB O2 Sat 92.9 % (95-100); Ionized Calcium Level - ABG 1.1 mmol/L (1.1-1.4); Methemoglobin 0.5 % (0.4-1.5); Oxygen Saturation ABG 95.3; PO2 ABG 77.8 mmHg (80.0-100.0); Potassium Level - ABG 5.1 mmol/L (3.5-5.0); Total Hemoglobin 12.8 g/dL (12-16)
[2023-11-03 17:24] LABS: Alveolar-Arterial Oxygen Gradi 7.1 mmHg (5-10); Blood Gas Operator Identificat MONRO; Blood Gas Sample Site Radial, right; Oxygen Device BIPAP; PO2 FiO2 Ratio Arterial Blood 0
[2023-11-03 17:25] LABS: ABG PCO2 67.1 mmHg (35-45)
--- NOTE | 2023-11-03 18:23 | PC.NURSE ---
Addendum entered by Mikal Barksdale RN 11/03/23 18:31: SHift SUmmary: Uneventful shift .Patient was up to a chair for about 3 hours. Cardizem titrated off. Heparin drip started. Due to hypercapnia and associated confusion, bipap was started and titrated later in the day due to increased confusion. Total urine output over 12 hour shift has been 150mL (average 0.08ml/kg/hr), dark tea colored urine and physician is aware of low output. Original Note: SHift SUmmary: Uneventful shift .Patient was up to a chair for about 3 hours. Cardizem titrated off. Heparin drip started. Due to hypercapnia and associated confusion, bipap was started and titrated later in the day due to increased confusion.
[2023-11-03 18:38] LABS: ABG PH Result 7.27 (7.35-7.45); Arterial Blood Gas Hematocrit 39.3 % (37-47); Base Excess ABG 2.5 mmol/L (-2.0-2.0); Blood Gas Allen Test Pos; Blood Gas Sample Type Arterial; HCO3 ABG 31.1 mmol/L (22-26); HGB O2 Sat 94.2 % (95-100); Ionized Calcium Level - ABG 1.1 mmol/L (1.1-1.4); Methemoglobin 0.5 % (0.4-1.5); Oxygen Saturation ABG 96.6; PO2 ABG 84.6 mmHg (80.0-100.0); Potassium Level - ABG 4.9 mmol/L (3.5-5.0); Total Hemoglobin 12.8 g/dL (12-16)
[2023-11-03 18:39] LABS: Alveolar-Arterial Oxygen Gradi 6.2 mmHg (5-10); Blood Gas Operator Identificat MONRO; Blood Gas Sample Site Radial, right; Oxygen Device BIPAP; PO2 FiO2 Ratio Arterial Blood 0
[2023-11-03 18:51] LABS: ABG PCO2 67.1 mmHg (35-45)
[2023-11-03 18:56] LABS: Partial Thromboplastin Time 121.8 SECONDS (23.9-36.7)
[2023-11-03 18:58] LABS: Blood Urea Nitrogen 42 mg/dL (8-23); Calcium 8.4 mg/dL (8.5-10.5); Carbon Dioxide 22 mmol/L (22-29); Chloride 101 mmol/L (98-107); Glomerular Filtration Rate 29.7 mL/min (90-130); Glucose 159 mg/dL (65-115); Osmolality Calculated 298 mOsm/kg (285-295); Sodium 137 mmol/L (136-145)
[2023-11-03 19:17] LABS: Anion Gap 19.6 (5-19); Potassium 5.6 mmol/L (3.5-5.1)
[2023-11-03 19:53] LABS: Glucose Point of Care 147 mg/dL (70-110)
[2023-11-03] MEDS: norepinephrine 4 MG/250 ML BAG 7.5 MG IV (20:31)
[2023-11-03] MEDS: dextrose 50% syringe 50 mL IVP (20:34)
[2023-11-03] MEDS: methylPREDNISolone sod succ 40 mg/mL INJ IVP (20:35)
[2023-11-03] MEDS: FUROsemide 10 mg/mL SDV 10mL 100 MG IVP (20:37)
[2023-11-03] MEDS: insulin regular-human 10 UNIT in SYRINGE 1 EACH IVP (20:38)
[2023-11-03 21:05] LABS: Glucose Point of Care 172 mg/dL (70-110)
--- NOTE | 2023-11-03 21:50 | PC.NURSE ---
Dr. Aguayo orderd for levophed to be started at 2 mcg/min and to be kept at that rate maintaining the patient's blood pressure MAP above 70.
[2023-11-04] VITALS (73 sets, daily range): BP systolic 92–148; BP diastolic 43–100; PULSE 102–126; RESP 0–33; TEMP 35.9–36.8; O2SAT 80–99; BMI 59.1
[2023-11-04] MEDS: levalbuterol 0.63 mg/3 mL Neb INHALATION ×6 (00:12→20:29)
[2023-11-04] MEDS: ipratropium 0.5 mg/2.5 mL Neb INHALATION ×6 (00:12→20:29)
[2023-11-04] MEDS: ALPRAZolam 0.5 mg Tablet 0.25 MG PO (01:03)
[2023-11-04] MEDS: methylPREDNISolone sod succ 40 mg/mL INJ IVP ×3 (04:24→19:03)
[2023-11-04 04:46] LABS: Alanine Aminotransferase 50 U/L (0-33); Alkaline Phosphatase 150 U/L (35-105); Aspartate Amino Transferase 30 U/L (0-32); Blood Urea Nitrogen 42 mg/dL (8-23); Calcium 8.6 mg/dL (8.5-10.5); Carbon Dioxide 23 mmol/L (22-29); Chloride 99 mmol/L (98-107); Globulin 3.6 g/dL (1.3-4.6); Glomerular Filtration Rate 29.7 mL/min (90-130); Glucose 110 mg/dL (65-115); Osmolality Calculated 297 mOsm/kg (285-295); Sodium 138 mmol/L (136-145); Total Bilirubin 0.4 mg/dL (0.15-1.2); Total Protein 6.6 g/dL (6.6-8.7)
[2023-11-04 04:53] LABS: Anion Gap 20.9 (5-19); Potassium 4.9 mmol/L (3.5-5.1)
[2023-11-04 05:12] LABS: Basophils % 0.2 %; Hematocrit 43.5 % (36-47); Lymphocytes # 0.6 10^3/uL (0.8-4.8); Lymphocytes % 3.4 %; Mean Corpuscular HGB Conc 30.1 g/dL (30-55); Mean Corpuscular Volume 96.2 fl (85-98); Mean Platelet Volume 10.9 fL (7.4-10.4); Monocytes # 0.9 10^3/uL (0.2-0.9); Monocytes % 5.7 %; Neutrophils # 14.56 10^3/uL (1.8-7.7); Neutrophils % 90.1 %; Nucleated Red Blood Cells % 0 %; Platelet Count 334 10^3/cmm (157-399); Red Blood Count 4.52 10^6/uL (3.85-5.65); Red Cell Distribution Width 15.8 % (12.1-15.1); White Blood Count 16.15 10^3/uL (3.29-11.43)
[2023-11-04 05:28] LABS: Chol HDL Ratio 2.75 mg/dL (0.0-4.40); Cholesterol 162 mg/dL (0-200); HDL Cholesterol 59 mg/dL (60-100); LDL Cholesterol Calculated 88 mg/dL (50-129); Magnesium 2.5 mg/dL (1.7-2.3); Triglycerides 75 mg/dL (0-150); VLDL Cholestrol Calculation 15 mg/dL (0-30)
[2023-11-04 05:30] LABS: Estmated Average Glucose 134; Hemoglobin A1C 6.3 % (4.0-6.0)
[2023-11-04 05:41] LABS: Folate Level > 20.0 ng/mL (4.8-37.3)
[2023-11-04] MEDS: budesonide 0.5 mg/2 mL Neb INHALATION ×2 (07:27→20:29)
--- NOTE | 2023-11-04 08:03 | PC.NURSE ---
upon morning assessment, patient found to have a heart rate between 115-120, afib. Occaisonally jumping up to 140's briefly. NUrse alerted Dr doe. Received orders for amiodarone, lasix, and ABG
[2023-11-04 08:06] LABS: Glucose Point of Care 123 mg/dL (70-110)
[2023-11-04] MEDS: amiodarone 50 mg/mL SDV 3 mL 150 MG IVP (08:09)
[2023-11-04] MEDS: FUROsemide 10 mg/mL SDV 10mL 100 MG IVP (08:12)
[2023-11-04 08:30] LABS: Partial Thromboplastin Time 47.3 SECONDS (23.9-36.7)
--- NOTE | 2023-11-04 08:35 | PC.PHAR ---
Pharmacokinetic dosing service Date: 11/04/23 Time: 834 Objective: Patient: Lizeth Adams Floor: ICU-5 Age: 68 yo Serum creatinine: 1.7 mg/dL Height: 61.0 Inches Weight (kg): 141.975 Diagnosis: Relevant medical/social history: Cultures and sensitivities: Other labs: Assessment: IBW (kg): 47.80 Dosing wt(kg): 141.975 Estimated Creatinine clearance (ml/min): 23.2 CRCL method: Cockcroft and Gault using ibw(default). Drug selected: Vancomycin Loading dose (mg): 0 Vd (liters): 127.8 (factor used: 0.9 L/kg) Missael (hr-1): 0.024 Half life (hrs): 28.88 Recommended dose: 1500 mg Interval: 24 hrs Infusion time (hrs): 1.5 Predicted peak (mcg/mL): 26.3 Predicted trough (mcg/mL): 15.33 Total body weight is being used for vancomycin dosing. Renal function is stable [ ] /unstable [ ] Recommendations: Give Vancomycin 1500 mg q 24 hrs with an expected Cpeak of 26.3 mcg/ml and an expected Ctrough of 15.33 mcg/ml Renal dosing of other antibiotics (review renal dosing of other medications and list guidelines here): Thank you for the consult, will continue to follow. Signature: Josefina Tee [facility]
[2023-11-04 08:40] LABS: ABG PCO2 52.1 mmHg (35-45); ABG PH Result 7.35 (7.35-7.45); Alveolar-Arterial Oxygen Gradi 10.8 mmHg (5-10); Arterial Blood Gas Hematocrit 41.1 % (37-47); Base Excess ABG 1.7 mmol/L (-2.0-2.0); Blood Gas Allen Test Pos; Blood Gas Operator Identificat GD; Blood Gas Sample Site Radial, right; Blood Gas Sample Type Arterial; Carboxyhemoglobin 2.1 %THgb (0.4-20.1); HCO3 ABG 28.4 mmol/L (22-26); HGB O2 Sat 92.3 % (95-100); Ionized Calcium Level - ABG 1.1 mmol/L (1.1-1.4); Methemoglobin 0.3 % (0.4-1.5); Oxygen Device BIPAP; Oxygen Saturation ABG 94.6; PO2 ABG 67.6 mmHg (80.0-100.0); PO2 FiO2 Ratio Arterial Blood 0; Potassium Level - ABG 5.2 mmol/L (3.5-5.0); Total Hemoglobin 13.4 g/dL (12-16)
[2023-11-04] MEDS: heparin drip 25,000 UNIT/500 ML PREMIX 15 UNIT IV (09:07)
[2023-11-04] MEDS: heparin 5,000 unit/mL INJ 1 mL IV (09:08)
[2023-11-04] MEDS: vancomycin 1,500 MG/300 ML PIGGYBACK 200 MG IV (09:15)
[2023-11-04] MEDS: pantoprazole DR 40 mg Tablet PO (09:21)
[2023-11-04] MEDS: piperacillin-tazobactam 3.375 GM in sodium chloride 0.9% (plus) 50 ML IV ×2 (11:46→18:14)
[2023-11-04 12:03] LABS: Glucose Point of Care 206 mg/dL (70-110)
[2023-11-04] MEDS: insulin lispro 100 unit/1 mL SUBCUT ×3 (12:13→22:30)
[2023-11-04] MEDS: magnesium hydroxide 30 mL UDC PO (12:17)
--- NOTE | 2023-11-04 14:54 | P.PN_ITS ---
Subjective 2 Subjective: Overnight patient had soft blood pressures for which she required Levophed. Currently on Levophed of 2. Patient is back in A-fib with RVR for which she has been started on amiodarone drip. Patient remained on AVAPS mode of BiPAP overnight because of persistent respiratory acidosis. Patient is more awake and alert today. Seen with family at bedside. Urine output of 1100 cc in last 24 hours. Urine output has seemed to improved after Levophed. Mean artery pressure have remained over 65. Vitals/I&O/Wt Last Vital Signs Temp 98.1 F 11/04/23 12:00 Pulse 107 H 11/04/23 14:00 Resp 12 11/04/23 12:00 BP 104/66 11/04/23 12:00 Pulse Ox 92 11/04/23 13:34 O2 Del Method Nasal Cannula 11/04/23 12:00 O2 Flow Rate 4 11/04/23 12:00 FiO2 30 11/04/23 13:34 11/03/23 11/04/23 11/04/23 22:59 06:59 14:59 Intake Total 354.6 / 651.184 141.4 / 422.150 4322.875 / 1998.875 Output Total 365 / 465 750 / 1215 375 / 375 Balance -10.4 / 186.184 -608.6 / -721.950 0328.875 / 1624.875 Weight last 48 hrs Weight 141.974 kg Weight 141.974 kg Weight 141.974 kg Weight 136.078 kg Physical Exam 2 Narrative: General: No acute distress, AO x3, NC oxygen supplementation, morbidly obese HEENT: PERRLA, pupils bilaterally equal and reactive Chest: Bilateral bronchial breath sounds all over lung fleming, decreased air entry all over lung fleming with diffuse rhonchi Extremity: Bilateral lower limb swelling 1+ up to the knee, old skin changes present consistent with peripheral vascular disease CVS: S1-S2 regular, no murmurs, no tachycardia, no gallops, no rubs Abdomen: Soft, nontender, no organomegaly, bowel sounds present, morbidly obese Neuro: No focal deficits, no facial deformity, AO x3, power 5/5 in all limbs Data 11/04/23 05:00 11/04/23 03:30 Micro: Microbiology 11/03/23 14:49 Urine Culture - Preliminary Urine,Clean Catch 11/03/23 14:49 Bacterial Antigens - Final Urine Kidney A&P Assessment and plan (1) Respiratory acidosis: (2) Acute on chronic respiratory failure with hypoxia and hypercapnia: (3) COPD (chronic obstructive pulmonary disease): (4) Obstructive sleep apnea: (5) Pneumonia: (6) CHF (congestive heart failure): Qualifiers: Heart failure chronicity: acute on chronic (7) Atrial fibrillation: Qualifiers: Atrial fibrillation type: persistent (not longstanding) Qualified Code(s): I48.19 - Other persistent atrial fibrillation (8) Acute kidney injury: (9) Hyperkalemia: (10) Type 2 diabetes mellitus: (11) Morbid obesity: (12) Transaminitis: (13) Anasarca: (14) Moderate pulmonary hypertension: (15) Breast mass, right: (16) Pleural effusion, right: Plan 68-year-old lady with a past medical history of diabetes mellitus, reported history of COPD presenting to the ER today with 2 months of worsening dyspnea and anasarca. Respiratory acidosis: Acute on chronic hypoxic and hypercapnic respiratory failure. Most likely in setting of COPD exacerbation, obstructive sleep apnea noncompliant to BiPAP/CPAP with possibility of congestive heart failure in setting of A-fib with RVR on admission. Lower limb Dopplers negative for DVT. Echocardiogram done yesterday showed an EF of 50 to 55% without regional wall motion abnormality, dilated and mildly hypokinetic right ventricle with RVSP of 50 mmHg consistent with moderate to severe pulmonary hypertension. Most likely in setting of longstanding obstructive sleep apnea and COPD. D-dimer elevated. Patient has DONNA as well I will be able to do CTA. Patient currently on heparin drip given A-fib with RVR. Appreciate CT chest results. Consistent with a possible breast right mass, possible consolidation in right lower lobe along with pleural effusion. proBNP elevated to more than 16,000 on admission. Continue with IV Lasix 100 mg IV. Will monitor urine output and repeat BMP in evening. If needed will add metolazone. Continue with ipratropium, Xopenex every 6 hours, Pulmicort twice daily. Continue with IV Solu-Medrol 40 mg every [address] consolidation [address] chest, leukocytosis today. Concerns for possible aspiration pneumonia. Check sputum culture, procalcitonin, MRSA swab, modified barium swallow. IV vancomycin and Zosyn for now. Patient does have right-sided pleural effusion. Will plan for ultrasound-guided thoracentesis which will be put therapeutic and diagnostic. Atrial fibrillation: With RVR. Patient currently on Levophed. Start on amiodarone drip after amiodarone bolus. Continue with heparin drip for anticoagulation. Appreciate echocardiogram results. Acute kidney injury: Most likely in setting of cardiorenal syndrome. Patient also has right-sided heart failure with dilated and hypokinetic RV. IV Lasix 100 mg one-time. If needed will add metolazone. Repeat BMP in evening. Hyperkalemia with resolved. Right-sided breast mass: Discussed in detail with the patient. Patient does give history of right breast mass in the past. She does not want to do any further workup. She is aware it could be malignant but does not want any further workup. Discussed in detail with family at bedside. Patient is adamant. Type 2 diabetes mellitus: Patient noncompliant to antidiabetic medications. A1c 6.5. Insulin sliding scale low-dose protocol before meals and at bedtime. Carb consistent diet. Morbid obesity CODE STATUS: Discussed in detail with the patient. Patient does not want any intubation or life support or chest compression. Changed to DNR/DNI. Patient's daughter will be DPOA. Carb consistent cardiac diet Protonix for PUD prophylaxis Heparin drip will suffice for DVT prophylaxis. Out of bed to chair. Attestations 2 Medical Necessity Statement*: Requires further hospitalization for management of hypoxic hypercapnic respiratory failure in setting of severe obstructive sleep apnea, COPD, congestive heart failure, atrial fibrillation with rapid ventricular response, DONNA in a patient with right-sided pleural effusion, pneumonia and right breast mass Critical Care Time: The high probability of a clinically significant, sudden or life threatening deterioration of the patient's [cardiac, renal, pulmonary] system(s) required my full and direct attention, intervention and personal management. The critical care time is as shown. This time is in addition to time spent performing any reported procedures but includes the following: [x] Data and vital sign review and interpretation [x] Patient assessment, examination and intervention [x] Documentation [x] Medication orders and management Coding Level of Care Code Critical Care >/= 30 minutes Critical care time (in minutes): 65 The high probability of a clinically significant, sudden or life threatening deterioration, as referenced in this documentation, required my full and direct attention, intervention and personal management. The critical care time shown is in addition to time spent performing any reported separately billable procedures and includes the following: [x] Data and vital sign review and interpretation [x ] Patient assessment, examination and intervention [x] Medication orders and management [x] Patient/Family updates as able [x] Care Coordination and Documentation. Other Coding Information This patient has a high probability of clinically significant, sudden or life threatening deterioration of the patient's (neurological/pulmonary/cardiac/renal/ID/endocrine) systems required my full, direct attention, the highest level of physician preparedness for urgent intervention and personal management. I managed/supervised life or organ supporting interventions that required frequent physician assessment. I devoted my full attention in the ICU to the direct care of this patient for the period of time indicated above. Time I spent with family or surrogate(s) is included only if the patient was incapable of providing necessary information or participating in decision making. This time includes the following services provided: Telemetry review BiPAP ventilation Hemodynamic interpretation, assessment and management Review and interpretation of CXR Review and interpretation of lab values Review and interpretation of microbiologic data and culture results Review of medications and administration Review and interpretation of Nutrition requirements and management Discussion of management with other consultants and services Clinical update to family members Diagnoses Respiratory acidosis E87.29 Acute on chronic respiratory failure with hypoxia and hypercapnia J96.21; J96.22 COPD (chronic obstructive pulmonary disease) J44.9 Obstructive sleep apnea G47.33 Pneumonia J18.9 CHF (congestive heart failure) I50.9 Heart failure chronicity: acute on chronic Atrial fibrillation I48.19 Atrial fibrillation type: persistent (not longstanding) Acute kidney injury N17.9 Hyperkalemia E87.5 Type 2 diabetes mellitus E11.9 Morbid obesity E66.01 Transaminitis R74.01 Anasarca R60.1 Moderate pulmonary hypertension I27.20 Breast mass, right N63.10 Pleural effusion, right J90
[2023-11-04] MEDS: methIMAzole 5 MG Tablet PO (16:22)
[2023-11-04] MEDS: albumin 25 G/100 ML BAG 60 G IV ×2 (16:22→23:29)
[2023-11-04 18:07] LABS: Glucose Point of Care 279 mg/dL (70-110)
[2023-11-04] MEDS: sennosides-docusate Tablet 1 TAB PO (18:16)
[2023-11-04] MEDS: docusate sodium 100 mg Capsule PO (18:16)
[2023-11-04 18:48] LABS: Partial Thromboplastin Time 35.5 SECONDS (23.9-36.7)
[2023-11-04 19:53] LABS: Blood Urea Nitrogen 47 mg/dL (8-23); Calcium 8.6 mg/dL (8.5-10.5); Carbon Dioxide 26 mmol/L (22-29); Chloride 97 mmol/L (98-107); Glomerular Filtration Rate 27.8 mL/min (90-130); Glucose 289 mg/dL (65-115); Osmolality Calculated 303 mOsm/kg (285-295); Sodium 135 mmol/L (136-145)
[2023-11-04 22:29] LABS: Glucose Point of Care 266 mg/dL (70-110)
[2023-11-05] VITALS (45 sets, daily range): BP systolic 91–123; BP diastolic 55–88; PULSE 90–129; RESP 0–25; TEMP 36.4; O2SAT 87–95; BMI 61.2
[2023-11-05] MEDS: ipratropium 0.5 mg/2.5 mL Neb INHALATION ×6 (00:29→21:39)
[2023-11-05] MEDS: levalbuterol 0.63 mg/3 mL Neb INHALATION ×6 (00:29→21:39)
[2023-11-05 02:12] LABS: Basophils % 0.1 %; Hematocrit 37.8 % (36-47); Lymphocytes # 0.4 10^3/uL (0.8-4.8); Lymphocytes % 3.5 %; Mean Corpuscular HGB Conc 31.2 g/dL (30-55); Mean Corpuscular Hemoglobin 29.5 pg (27-33); Mean Corpuscular Volume 94.5 fl (85-98); Mean Platelet Volume 11.1 fL (7.4-10.4); Monocytes # 0.6 10^3/uL (0.2-0.9); Monocytes % 6.2 %; Neutrophils # 8.99 10^3/uL (1.8-7.7); Neutrophils % 89.8 %; Nucleated Red Blood Cells % 0 %; Platelet Count 287 10^3/cmm (157-399); Red Cell Distribution Width 15.7 % (12.1-15.1); White Blood Count 10.01 10^3/uL (3.29-11.43)
[2023-11-05] MEDS: piperacillin-tazobactam 3.375 GM in sodium chloride 0.9% (plus) 50 ML IV ×3 (02:22→18:15)
[2023-11-05 02:27] LABS: Partial Thromboplastin Time 39.1 SECONDS (23.9-36.7)
[2023-11-05 02:32] LABS: Magnesium 2.6 mg/dL (1.7-2.3)
[2023-11-05 02:33] LABS: Alanine Aminotransferase 34 U/L (0-33); Albumin Level 3.5 g/dL (3.5-5.2); Alkaline Phosphatase 115 U/L (35-105); Anion Gap 17.2 (5-19); Aspartate Amino Transferase 14 U/L (0-32); Blood Urea Nitrogen 49 mg/dL (8-23); Calcium 8.6 mg/dL (8.5-10.5); Carbon Dioxide 27 mmol/L (22-29); Chloride 95 mmol/L (98-107); Globulin 2.7 g/dL (1.3-4.6); Glomerular Filtration Rate 26.1 mL/min (90-130); Glucose 241 mg/dL (65-115); Osmolality Calculated 299 mOsm/kg (285-295); Potassium 5.2 mmol/L (3.5-5.1); Sodium 134 mmol/L (136-145); Total Bilirubin 0.3 mg/dL (0.15-1.2); Total Protein 6.2 g/dL (6.6-8.7)
[2023-11-05] MEDS: methylPREDNISolone sod succ 40 mg/mL INJ IVP ×3 (02:34→19:39)
[2023-11-05] MEDS: heparin 5,000 unit/mL INJ 1 mL IV (02:46)
--- NOTE | 2023-11-05 06:19 | PC.NURSE ---
Patient has undocumented adkins. This nurse added adkins catheter management.
[2023-11-05] MEDS: albumin 25 G/100 ML BAG 60 G IV ×2 (06:38→15:21)
[2023-11-05] MEDS: budesonide 0.5 mg/2 mL Neb INHALATION ×2 (07:42→21:39)
[2023-11-05 08:11] LABS: Glucose Point of Care 201 mg/dL (70-110)
[2023-11-05] MEDS: vancomycin 1,500 MG/300 ML PIGGYBACK 200 MG IV (08:51)
[2023-11-05] MEDS: pantoprazole DR 40 mg Tablet PO (08:52)
[2023-11-05] MEDS: docusate sodium 100 mg Capsule PO ×2 (08:52→18:15)
[2023-11-05] MEDS: sennosides-docusate Tablet 1 TAB PO ×2 (08:52→18:15)
[2023-11-05] MEDS: methIMAzole 5 MG Tablet PO (08:52)
[2023-11-05 08:55] LABS: Partial Thromboplastin Time 67.9 SECONDS (23.9-36.7)
[2023-11-05] MEDS: insulin lispro 100 unit/1 mL SUBCUT ×4 (09:04→22:03)
[2023-11-05] MEDS: dextrose 50% syringe 50 mL IVP (11:40)
[2023-11-05] MEDS: insulin regular-human 10 UNIT in SYRINGE 1 EACH IVP (11:40)
[2023-11-05] MEDS: amiodarone 200 mg Tablet PO ×2 (11:41→18:15)
[2023-11-05 12:12] LABS: Glucose Point of Care 273 mg/dL (70-110)
[2023-11-05 12:54] LABS: Free T4 Free Thyroxine 0.77 ng/dL (0.82-1.77); Thyroid Stimulating Hormone 1.88 uIU/mL (0.27-4.20)
--- NOTE | 2023-11-05 15:00 | P.PN_ITS ---
Subjective 2 Subjective: No events overnight. Patient was on BiPAP overnight. Today morning seen on oxygen supplementation of 4 L saturating more than 90%. Patient is awake and alert and able to have complete conversation. Denies any nausea, vomiting, headache. Continues to have poor urine response. Urine output of around 675 cc in last 24 hours. Patient is overall 3 liters positive. Vitals/I&O/Wt Last Vital Signs Temp 96.6 F L 11/04/23 23:00 Pulse 112 H 11/05/23 14:00 Resp 3 L 11/05/23 12:00 BP 112/76 11/05/23 12:00 Pulse Ox 90 11/05/23 12:00 O2 Del Method Nasal Cannula 11/05/23 11:00 O2 Flow Rate 4 11/05/23 11:00 FiO2 30 11/05/23 07:45 11/05/23 11/05/23 11/05/23 06:59 14:59 22:59 Intake Total 814.671 / 4061.613 640 / 640 Output Total 125 / 675 Balance 689.671 / 3386.613 640 / 640 Weight last 48 hrs Weight 146.964 kg Weight 141.974 kg Physical Exam 2 Narrative: General: No acute distress, AO x3, NC oxygen supplementation, morbidly obese HEENT: PERRLA, pupils bilaterally equal and reactive Chest: Bilateral bronchial breath sounds all over lung fleming, decreased air entry all over lung fleming with diffuse rhonchi Extremity: Bilateral lower limb swelling 1+ up to the knee, old skin changes present consistent with peripheral vascular disease CVS: S1-S2 regular, no murmurs, no tachycardia, no gallops, no rubs Abdomen: Soft, nontender, no organomegaly, bowel sounds present, morbidly obese Neuro: No focal deficits, no facial deformity, AO x3, power 5/5 in all limbs Urinary Catheter Management: Bautista: Cath Placed During This Visit: no Reason for Continuing Indwelling Catheter: Accurate Measurement of Urinary Output in Critically Ill Patients Data 11/05/23 02:00 11/05/23 02:00 Micro: Microbiology 11/03/23 14:49 Urine Culture - Final Urine,Clean Catch 11/02/23 21:59 Blood Culture - Preliminary Blood 11/02/23 22:12 Blood Culture - Preliminary Blood 11/03/23 14:49 Bacterial Antigens - Final Urine Kidney A&P Assessment and plan (1) Respiratory acidosis: (2) Acute on chronic respiratory failure with hypoxia and hypercapnia: (3) COPD (chronic obstructive pulmonary disease): (4) Obstructive sleep apnea: (5) Pneumonia: (6) CHF (congestive heart failure): Qualifiers: Heart failure chronicity: acute on chronic (7) Atrial fibrillation: Qualifiers: Atrial fibrillation type: persistent (not longstanding) Qualified Code(s): I48.19 - Other persistent atrial fibrillation (8) Acute kidney injury: (9) Hyperkalemia: (10) Type 2 diabetes mellitus: (11) Morbid obesity: (12) Transaminitis: (13) Anasarca: (14) Moderate pulmonary hypertension: (15) Breast mass, right: (16) Pleural effusion, right: (17) Cardiorenal syndrome with renal failure: Plan 68-year-old lady with a past medical history of diabetes mellitus, reported history of COPD presenting to the ER today with 2 months of worsening dyspnea and anasarca. Respiratory acidosis: Acute on chronic hypoxic and hypercapnic respiratory failure. Most likely in setting of COPD exacerbation, obstructive sleep apnea noncompliant to BiPAP/CPAP leading to right-sided heart failure with possibility of diastolic congestive heart failure in setting of A-fib with RVR on admission. Lower limb Dopplers negative for DVT. Echocardiogram done yesterday showed an EF of 50 to 55% without regional wall motion abnormality, dilated and mildly hypokinetic right ventricle with RVSP of 50 mmHg consistent with moderate to severe pulmonary hypertension, dilated IVC. Most likely in setting of longstanding obstructive sleep apnea and COPD. D-dimer elevated. Patient has DONNA as well I will be able to do CTA. Patient currently on heparin drip given A-fib with RVR. Appreciate CT chest results. Consistent with a possible breast right mass, possible consolidation in right lower lobe along with pleural effusion. Repeat proBNP. Patient definitely has concerns for intravascular depletion and right-sided heart failure leading to cardiorenal syndrome leading to poor urine response to diuretics and worsening renal functions. Will do Cheetah examination and start on IV diuresis accordingly. Continue with IV albumin every 8 hourly for now. Continue with ipratropium, Xopenex every 4 hours, Pulmicort twice daily. Continue with IV Solu-Medrol 40 mg every 8 hourly. Will plan to wean down in next [address] hours. Given consolidation on CT chest, leukocytosis today. Concerns for possible aspiration pneumonia. Check sputum culture, procalcitonin, MRSA swab, modified barium swallow. IV vancomycin and Zosyn for now. Patient does have right-sided pleural effusion. Will plan for ultrasound-guided thoracentesis which will be put therapeutic and diagnostic. Atrial fibrillation: With RVR. Currently on amiodarone drip. Stop the drip as per protocol. Start on amiodarone 200 mg twice daily. Also continue with metoprolol 25 mg twice daily. Continue with heparin drip for anticoagulation. Appreciate echocardiogram results. Acute kidney injury: Most likely in setting of cardiorenal syndrome in setting of RV failure. Patient also has right-sided heart failure with dilated and hypokinetic RV. Acute examination and further diuresis as per the evaluation. Repeat BMP in evening. Hyperkalemia to be treated with D50 and 10 units of insulin along with IV calcium gluconate Right-sided breast mass: Discussed in detail with the patient. Patient does give history of right breast mass in the past. She does not want to do any further workup. She is aware it could be malignant but does not want any further workup. Discussed in detail with family at bedside. Patient is adamant. Type 2 diabetes mellitus: Patient noncompliant to antidiabetic medications. A1c 6.5. Insulin sliding scale low-dose protocol before meals and at bedtime. Carb consistent diet. Morbid obesity CODE STATUS: Discussed in detail with the patient. Patient does not want any intubation or life support or chest compression. Changed to DNR/DNI. Patient's daughter will be DPOA. Carb consistent cardiac diet Protonix for PUD prophylaxis Heparin drip will suffice for DVT prophylaxis. Out of bed to chair. Transfer to C[facility]. Attestations 2 Medical Necessity Statement*: Patient requires further hospitalization for management of acute hypercapnic and hypoxic respiratory failure in setting of severe COPD and obstructive sleep apnea leading to right-sided heart failure and cardiorenal syndrome, A-fib with RVR Diagnoses Respiratory acidosis E87.29 Acute on chronic respiratory failure with hypoxia and hypercapnia J96.21; J96.22 COPD (chronic obstructive pulmonary disease) J44.9 Obstructive sleep apnea G47.33 Pneumonia J18.9 CHF (congestive heart failure) I50.9 Heart failure chronicity: acute on chronic Atrial fibrillation I48.19 Atrial fibrillation type: persistent (not longstanding) Acute kidney injury N17.9 Hyperkalemia E87.5 Type 2 diabetes mellitus E11.9 Morbid obesity E66.01 Transaminitis R74.01 Anasarca R60.1 Moderate pulmonary hypertension I27.20 Breast mass, right N63.10 Pleural effusion, right J90 Cardiorenal syndrome with renal failure I13.10
[2023-11-05] MEDS: magnesium hydroxide 30 mL UDC PO (15:21)
[2023-11-05 15:57] LABS: NT Pro B Type Natriuretic Pept 22929 pg/mL (0-125); Procalcitonin 1.19 ng/mL (0-0.5)
[2023-11-05] MEDS: calcium gluconate 0.1 gm/mL 10% SDV 10mL 1 GM IVP (16:07)
[2023-11-05] MEDS: heparin drip 25,000 UNIT/500 ML PREMIX 21 UNIT IV (16:09)
[2023-11-05 18:11] LABS: Partial Thromboplastin Time 66.7 SECONDS (23.9-36.7)
[2023-11-05 18:24] LABS: Glucose Point of Care 189 mg/dL (70-110)
[2023-11-05 19:49] LABS: Anion Gap 16.8 (5-19); Blood Urea Nitrogen 54 mg/dL (8-23); Calcium 8.8 mg/dL (8.5-10.5); Carbon Dioxide 28 mmol/L (22-29); Chloride 92 mmol/L (98-107); Glomerular Filtration Rate 26.1 mL/min (90-130); Glucose 196 mg/dL (65-115); Osmolality Calculated 294 mOsm/kg (285-295); Potassium 4.8 mmol/L (3.5-5.1); Sodium 132 mmol/L (136-145)
[2023-11-05 21:42] LABS: Glucose Point of Care 184 mg/dL (70-110)
[2023-11-05] MEDS: metoprolol tartrate 25 mg Tablet PO (22:03)
[2023-11-06] VITALS (29 sets, daily range): BP systolic 97–127; BP diastolic 68–91; PULSE 85–105; RESP 13–33; TEMP 36.3–37.1; O2SAT 83–95
[2023-11-06] MEDS: albumin 25 G/100 ML BAG 60 G IV ×4 (00:13→23:13)
[2023-11-06 00:24] LABS: Partial Thromboplastin Time 46.9 SECONDS (23.9-36.7)
[2023-11-06] MEDS: ipratropium 0.5 mg/2.5 mL Neb INHALATION ×6 (03:51→21:42)
[2023-11-06] MEDS: levalbuterol 0.63 mg/3 mL Neb INHALATION ×6 (03:52→21:42)
[2023-11-06] MEDS: methylPREDNISolone sod succ 40 mg/mL INJ IVP ×3 (04:00→19:33)
[2023-11-06] MEDS: piperacillin-tazobactam 3.375 GM in sodium chloride 0.9% (plus) 50 ML IV ×3 (04:00→19:33)
[2023-11-06 04:03] LABS: Basophils % 0.1 %; Hematocrit 38.9 % (36-47); Lymphocytes # 0.4 10^3/uL (0.8-4.8); Lymphocytes % 3.4 %; Mean Corpuscular HGB Conc 31.1 g/dL (30-55); Mean Corpuscular Hemoglobin 29.4 pg (27-33); Mean Corpuscular Volume 94.6 fl (85-98); Mean Platelet Volume 11.4 fL (7.4-10.4); Monocytes # 0.7 10^3/uL (0.2-0.9); Monocytes % 6.6 %; Neutrophils # 9.96 10^3/uL (1.8-7.7); Neutrophils % 89.5 %; Nucleated Red Blood Cells % 0 %; Platelet Count 232 10^3/cmm (157-399); Red Blood Count 4.11 10^6/uL (3.85-5.65); Red Cell Distribution Width 15.9 % (12.1-15.1); White Blood Count 11.13 10^3/uL (3.29-11.43)
[2023-11-06 04:18] LABS: Alanine Aminotransferase 27 U/L (0-33); Albumin Level 3.8 g/dL (3.5-5.2); Alkaline Phosphatase 94 U/L (35-105); Anion Gap 18.6 (5-19); Aspartate Amino Transferase 10 U/L (0-32); Blood Urea Nitrogen 59 mg/dL (8-23); Calcium 9.1 mg/dL (8.5-10.5); Carbon Dioxide 27 mmol/L (22-29); Chloride 97 mmol/L (98-107); Globulin 2.5 g/dL (1.3-4.6); Glomerular Filtration Rate 23.3 mL/min (90-130); Glucose 176 mg/dL (65-115); Osmolality Calculated 305 mOsm/kg (285-295); Potassium 5.6 mmol/L (3.5-5.1); Sodium 137 mmol/L (136-145); Total Bilirubin 0.3 mg/dL (0.15-1.2); Total Protein 6.3 g/dL (6.6-8.7)
[2023-11-06 04:20] LABS: Procalcitonin 1.09 ng/mL (0-0.5)
[2023-11-06 06:13] LABS: Magnesium 1.8 mg/dL (1.7-2.3)
[2023-11-06] MEDS: budesonide 0.5 mg/2 mL Neb INHALATION ×2 (07:23→21:42)
[2023-11-06 07:33] LABS: Partial Thromboplastin Time 67.2 SECONDS (23.9-36.7)
[2023-11-06 07:34] LABS: Glucose Point of Care 163 mg/dL (70-110)
[2023-11-06] MEDS: sennosides-docusate Tablet 1 TAB PO ×2 (08:47→18:20)
[2023-11-06] MEDS: pantoprazole DR 40 mg Tablet PO (08:47)
[2023-11-06] MEDS: docusate sodium 100 mg Capsule PO ×2 (08:47→18:20)
[2023-11-06] MEDS: metoprolol tartrate 25 mg Tablet PO ×2 (08:47→20:48)
[2023-11-06] MEDS: amiodarone 200 mg Tablet PO ×2 (08:47→18:20)
[2023-11-06] MEDS: magnesium hydroxide 30 mL UDC PO (08:47)
[2023-11-06] MEDS: vancomycin 1,500 MG/300 ML PIGGYBACK 200 MG IV (09:17)
--- NOTE | 2023-11-06 11:26 | PC.NURSE ---
Pt spo2 drop to low 80s. Notified RT. Educated pt on importance of BIPAP. Pt agreeable to apply BIPAP back on her to maintainig oxygen and ventilation.
--- NOTE | 2023-11-06 12:04 | PC.SOCIAL ---
IMM Update Pg. 2 of IMM updated. Copy provided at bedside, patient resting with bipap in place. Copy placed in chart.
--- NOTE | 2023-11-06 12:12 | P.CONIM_ITS ---
Providers/Reason For Consult 2 Consulting Physician/Specialty*: kommana/nephrology Reason for Consult*: DONNA , Hyperkalemia Attending Physician: Leslee Petersen MD Primary Care Provider: Moshe Roberson History of Present Illness History of Present Illness Lizeth Adams is a 68 year old female Patient is a 68-year-old female with past medical history of diabetes, COPD presented to the hospital with worsening shortness of breath. Patient was noted to be hypoxic in the ED and was noted to be in possible CHF exacerbation, A-fib with RVR, started on Cardizem drip. Patient received Lasix with no significant improvement in her breathing. Lab data significant for creatinine of 1.9 on presentation worsened to 2.4 currently also noted to have hyperkalemia. Urine output continues to get worse. Review of Systems 2 Narrative: other ros negative Medications/Allergies Home Medications Medication Instructions Recorded Confirmed Last Taken Type aspirin 325 mg tablet See Rx Instructions PO BID 09/14/23 11/03/23 11/02/23 History Allergies Allergy/AdvReac Type Severity Reaction Status Date / Time iodine Allergy Unknown Verified 11/02/23 22:58 Current Medications Generic Name Dose Route Start Last Admin Trade Name Freq PRN Reason Stop Dose Admin Amiodarone HCl 200 mg 11/05/23 11:10 11/06/23 08:47 Amiodarone 200 Mg Tablet PO 200 mg BID LOTUS Administration Budesonide 0.5 mg 11/03/23 20:00 11/06/23 07:23 Budesonide 0.5 Mg/2 Ml Neb INHALATION 0.5 mg BID.RESPIRATORY LOTUS Administration Docusate Sodium 100 mg 11/04/23 18:00 11/06/23 08:47 Docusate Sodium 100 Mg Capsule PO 100 mg BID LOTUS Administration Furosemide 40 mg 11/03/23 03:30 11/03/23 03:52 Furosemide 10 Mg/Ml Sdv 4ml IVP 40 mg Q12H LOTUS Administration Heparin Sodium (Porcine) 0 unit 11/03/23 10:45 11/05/23 02:46 Heparin 5,000 Unit/Ml Inj 1 Ml IV 5,000 unit PRN PRN Administration Heparin weight-base protocol Protocol Heparin Sodium/Sodium Chloride 25,000 unit in 500 mls @ 0 mls/hr 11/03/23 10:45 11/06/23 07:36 Heparin Drip IV 8.45 unit/kg/hr .Q0M LOTUS 24 mls/hr Titration Protocol Per Protocol Amiodarone HCl/Dextrose 360 mg in 200 mls @ 0 mls/hr 11/04/23 08:15 11/05/23 15:31 Nexterone IV Infused .Q0M LOTUS Titration Protocol Per Protocol Piperacillin Sod/Tazobactam 50 mls @ 12.5 mls/hr 11/04/23 11:00 11/06/23 08:05 Sod 3.375 gm/ Sodium Chloride IV Infused Q8H LOTUS Infusion Protocol Vancomycin/PEG/NADA/Lysine/Water 1,500 mg in 300 mls @ 200 mls/hr 11/04/23 09:00 11/06/23 11:00 Vancocin IV 200 mls/hr Q24H LOTUS Infusion Albumin Human 25 g in 100 mls @ 60 mls/hr 11/04/23 15:15 11/06/23 11:22 Albumin IV Infused Q8H LOTUS Infusion Insulin Human Lispro 0 unit 11/03/23 08:00 11/06/23 09:16 Insulin Lispro 100 Unit/1 Ml SUBCUT Not Given WM&BEDTIME LOTUS Protocol Ipratropium [place] 0.5 mg 11/03/23 20:00 11/06/23 11:29 Ipratropium 0.5 Mg/2.5 Ml Neb INHALATION 0.5 mg Q4H.RESPIRATORY LOTUS Administration Levalbuterol HCl 0.63 mg 11/03/23 20:00 11/06/23 11:29 Levalbuterol 0.63 Mg/3 Ml Neb INHALATION 0.63 mg Q4H.RESPIRATORY LOTUS Administration Magnesium Hydroxide 30 ml 11/05/23 15:00 11/06/23 08:47 Magnesium Hydroxide 30 Ml Udc PO 30 ml DAILY LOTUS Administration Methylprednisolone Sodium Succinate 40 mg 11/03/23 19:30 11/06/23 04:00 Methylprednisolone Sod Succ 40 Mg/Ml Inj IVP 40 mg Q8H LOTUS Administration Metoprolol Tartrate 25 mg 11/03/23 03:55 11/06/23 08:47 Metoprolol Tartrate 25 Mg Tablet PO 25 mg BID@0900,2100 LOTUS Administration Pantoprazole Sodium 40 mg 11/03/23 09:00 11/06/23 08:[address] 40 Mg Tablet PO 40 mg DAILY LOTUS Administration Senna/Docusate Sodium 1 tab 11/04/23 18:00 11/06/23 08:47 Sennosides-Docusate Tablet PO 1 tab BID LOTUS Administration PFSH Acute 2 PFSH: Medical History (Updated 11/05/23 @ 15:17 by Emilio Aguayo MD) COPD (chronic obstructive pulmonary disease) Enlarged and hypertrophic nails Morbid obesity Obstructive sleep apnea Uncontrolled diabetes mellitus Type 2 diabetes mellitus Surgical History (Updated 11/03/23 @ 12:11 by Emilio Aguayo MD) No pertinent past surgical history Family History Father Diabetes mellitus, type 2 Grandmother Cancer paternal Social History Smoking and tobacco/nicotine status: current every day tobacco/nicotine user cigarettes Packs smoked per day: 1 Alcohol intake: never Substance/Drug Use: never Adopted: No Caregiver/support person: No Lives independently: Yes service: No Current occupational status: retired and disabled Current gender identity: Female Agree to transfusion: No Vitals/I&O/Wt Last Vital Signs Temp 98.7 F 11/06/23 07:35 Pulse 89 11/06/23 11:31 Resp 19 H 11/06/23 11:31 BP 112/70 11/06/23 07:35 Pulse Ox 94 11/06/23 11:31 O2 Del Method BiPAP 11/06/23 11:31 O2 Flow Rate 4 11/06/23 07:27 FiO2 35 11/06/23 11:31 11/05/23 11/06/23 11/06/23 22:59 06:59 14:59 Intake Total 889.829 / 1529.929 285.5 / 1815.429 402.133 / 402.133 Output Total 150 / 150 200 / 350 Balance 739.829 / 1379.929 85.5 / 1465.429 402.133 / 402.133 Weight last 48 hrs Weight 146.964 kg Physical Exam 2 Narrative: awake, alert no ditress s1s2 rrr no edema Urinary Catheter Management: Bautista: Cath Placed During This Visit: no Reason for Continuing Indwelling Catheter: Accurate Measurement of Urinary Output in Critically Ill Patients Data 11/07/23 03:44 01/02/24 03:44 Micro: Microbiology 11/03/23 14:49 Urine Culture - Final Urine,Clean Catch A&P Assessment and plan (1) Cardiorenal syndrome with renal failure: (2) Acute kidney injury: (3) Hyperkalemia: Plan 1. Acute on chronic kidney disease: Associated with hyperkalemia and volume overload. No significant response to diuretics, will attempt Lasix drip if no improvement may require temporary dialysis. Will check renal ultrasound 2. Hyperkalemia: Placed on low K diet, medical management including Kayexalate and bicarb and calcium. 3. History of CHF now with volume overload , Poor response to diuretics, 4. History of COPD Patient evaluated using audiovisual cart. Time spent 40 minutes. Consult Attestations 2 Medical Necessity Statement: per medicine Coding Level of Care Code Acute Code for [facility] Diagnoses Cardiorenal syndrome with renal failure I13.10 Acute kidney injury N17.9 Hyperkalemia E87.5
--- NOTE | 2023-11-06 12:42 | P.PN_ITS ---
Subjective 2 Subjective: Seen this morning. Patient will be going for barium swallow tomorrow. She states she feels better and not worse compared to yesterday. Currently on 4 L nasal cannula. She says when she tries to lay flat she does feel short of restricted and short of breath however when she is sitting up she feels fine.. Currently running on a heparin drip and albumin drip. Pulse 101, saturation 92%, blood pressure 117/70. No acute events overnight reported by the nursing staff. Potassium 5.6 this morning. Creatinine 2.1. Urine output 350. Vitals/I&O/Wt Last Vital Signs Temp 98.7 F 11/06/23 07:35 Pulse 89 11/06/23 11:31 Resp 19 H 11/06/23 11:31 BP 112/70 11/06/23 07:35 Pulse Ox 94 11/06/23 11:31 O2 Del Method BiPAP 11/06/23 11:31 O2 Flow Rate 4 11/06/23 07:27 FiO2 35 11/06/23 11:31 11/05/23 11/06/23 11/06/23 22:59 06:59 14:59 Intake Total 889.829 / 1529.929 285.5 / 1815.429 512.933 / 512.933 Output Total 150 / 150 200 / 350 Balance 739.829 / 1379.929 85.5 / 1465.429 512.933 / 512.933 Weight last 48 hrs Weight 146.964 kg Physical Exam 2 Narrative: General: No acute distress, AO x3, NC oxygen supplementation, morbidly obese HEENT: EOMI, NC/AT Chest: Bilateral bronchial breath sounds all over lung fleming, decreased air entry all over lung fleming with diffuse rhonchi Extremity: Bilateral lower limb swelling 1+ up to the knee, old skin changes present consistent with peripheral vascular disease CVS: S1-S2 regular, difficult auscultation due to body habitus. Abdomen: Soft, nontender, no organomegaly, bowel sounds present Neuro: No focal deficits, no facial deformity, AO x3, Urinary Catheter Management: Bautista: Cath Placed During This Visit: no Reason for Continuing Indwelling Catheter: Accurate Measurement of Urinary Output in Critically Ill Patients Data 11/06/23 03:16 11/06/23 03:16 Micro: Microbiology 11/03/23 14:49 Urine Culture - Final Urine,Clean Catch A&P Assessment and plan (1) Respiratory acidosis: (2) Acute on chronic respiratory failure with hypoxia and hypercapnia: (3) COPD (chronic obstructive pulmonary disease): (4) Obstructive sleep apnea: (5) Pneumonia: (6) CHF (congestive heart failure): Qualifiers: Heart failure chronicity: acute on chronic (7) Atrial fibrillation: Qualifiers: Atrial fibrillation type: persistent (not longstanding) Qualified Code(s): I48.19 - Other persistent atrial fibrillation (8) Acute kidney injury: (9) Hyperkalemia: (10) Type 2 diabetes mellitus: (11) Morbid obesity: (12) Transaminitis: (13) Anasarca: (14) Moderate pulmonary hypertension: (15) Breast mass, right: (16) Pleural effusion, right: (17) Cardiorenal syndrome with renal failure: Plan 68-year-old lady with a past medical history of diabetes mellitus, reported history of COPD presenting to the ER today with 2 months of worsening dyspnea and anasarca. Respiratory acidosis: Acute on chronic hypoxic and hypercapnic respiratory failure. Most likely in setting of COPD exacerbation, obstructive sleep apnea noncompliant to BiPAP/CPAP leading to right-sided heart failure with possibility of diastolic congestive heart failure in setting of A-fib with RVR on admission. Lower limb Dopplers negative for DVT. Echocardiogram done yesterday showed an EF of 50 to 55% without regional wall motion abnormality, dilated and mildly hypokinetic right ventricle with RVSP of 50 mmHg consistent with moderate to severe pulmonary hypertension, dilated IVC. Most likely in setting of longstanding obstructive sleep apnea and COPD. D-dimer elevated. Patient has DONNA as well I will be able to do CTA. Patient currently on heparin drip given A-fib with RVR. Appreciate CT chest results. Consistent with a possible breast right mass, possible consolidation in right lower lobe along with pleural effusion. Repeat proBNP. Patient definitely has concerns for intravascular depletion and right-sided heart failure leading to cardiorenal syndrome leading to poor urine response to diuretics and worsening renal functions. Continue with IV albumin every 8 hourly for now. Start Lasix drip today. ? Consult nephrology for DONNA. Continue with ipratropium, Xopenex every 4 hours, Pulmicort twice daily. Continue with IV Solu-Medrol 40 mg every 8 hourly. Will plan to wean down in next [address] Given consolidation on [address] chest, leukocytosis today. Concerns for possible aspiration pneumonia. Check sputum culture, procalcitonin, MRSA swab, modified barium swallow. IV vancomycin and Zosyn for now. Antibiotic started 11/04/2023. Patient does have right-sided pleural effusion. Will plan for ultrasound-guided thoracentesis which will be put therapeutic and diagnostic. Ordered. Patient will have that done 11/07/2023. Atrial fibrillation: With RVR. Currently on amiodarone drip. Stop the drip as per protocol. Continue on amiodarone 200 mg twice daily. Also continue with metoprolol 25 mg twice daily. Continue with heparin drip for anticoagulation. Appreciate echocardiogram results. Acute kidney injury: Most likely in setting of cardiorenal syndrome in setting of RV failure. Patient also has right-sided heart failure with dilated and hypokinetic RV. Acute examination and further diuresis as per the evaluation. Repeat BMP in evening. Hyperkalemia on 11/05 treated with D50 and 10 units of insulin along with IV calcium gluconate. Potassium 5.6 today 11/06. Lasix drip started. Consult nephrology Right-sided breast mass: Discussed in detail with the patient. Patient does give history of right breast mass in the past. She does not want to do any further workup. She is aware it could be malignant but does not want any further workup. Discussed in detail with family at bedside. Patient is adamant. Type 2 diabetes mellitus: Patient noncompliant to antidiabetic medications. A1c 6.5. Insulin sliding scale low-dose protocol before meals and at bedtime. Carb consistent diet. Morbid obesity CODE STATUS: Discussed in detail with the patient. Patient does not want any intubation or life support or chest compression. Changed to DNR/DNI. Patient's daughter will be DPOA. Carb consistent cardiac diet Protonix for PUD prophylaxis Heparin drip will suffice for DVT prophylaxis. Out of bed to chair. Attestations 2 Medical Necessity Statement*: Patient requires further hospitalization for management of acute hypercapnic and hypoxic respiratory failure in setting of severe COPD and obstructive sleep apnea leading to right-sided heart failure and cardiorenal syndrome, A-fib with RVR Diagnoses Respiratory acidosis E87.29 Acute on chronic respiratory failure with hypoxia and hypercapnia J96.21; J96.22 COPD (chronic obstructive pulmonary disease) J44.9 Obstructive sleep apnea G47.33 Pneumonia J18.9 CHF (congestive heart failure) I50.9 Heart failure chronicity: acute on chronic Atrial fibrillation I48.19 Atrial fibrillation type: persistent (not longstanding) Acute kidney injury N17.9 Hyperkalemia E87.5 Type 2 diabetes mellitus E11.9 Morbid obesity E66.01 Transaminitis R74.01 Anasarca R60.1 Moderate pulmonary hypertension I27.20 Breast mass, right N63.10 Pleural effusion, right J90 Cardiorenal syndrome with renal failure I13.10
[2023-11-06 12:51] LABS: Glucose Point of Care 164 mg/dL (70-110)
[2023-11-06] MEDS: insulin lispro 100 unit/1 mL SUBCUT ×3 (13:03→21:39)
[2023-11-06] MEDS: sodium polystyrene sulfonate 15 gm/60 mL Btl PO (13:05)
[2023-11-06] MEDS: FUROsemide 100 MG in sodium chloride 0.9% 40 ML IV (13:39)
[2023-11-06 15:29] LABS: Methicillin-Resist S.aureu PCR NOT DETECTED (NOT DETECTED)
--- NOTE | 2023-11-06 15:30 | PC.NURSE ---
Notified hospitalist that not really doing good on her oxygenation and mentation status. she only 100ml urine output for 8 hrs. IV lasix drip started at [facility] per neprologist. 1831 pm-notified public health epidemiologist dr smith via telephone that pt did not have any urine output even with Lasix drip. notified on pt's BMP results. [employer] Sales Engineer requested pt to be transferred to ICU for possible hemodialysis. notified nurse supervisor. Received telephone orders to give 80 mg IVP lasix now, them bmp at [address] alvarez on other telephone orders but she said back that she will put the other orders in.
--- NOTE | 2023-11-06 16:07 | PC.NURSE ---
pt removed and then refused BIPAP that RT just applied on her. pt desat to 85-86% on room air. applied 3 l of oxygen via NC. Pt spo2 increased to 92%. Educated pt on the importance of using Bipap. Pt mentation wax and wane, at this time she is confused, looking and yelling in asking where her grandson Shad. Notified hospitalist of pt's abnormal mentation and oxygenation status. BP-99/70, HR-94. won BIPAP, on 3 to 4 L NC w/spO2-92%.
[2023-11-06] MEDS: heparin drip 25,000 UNIT/500 ML PREMIX 24 UNIT IV (16:18)
[2023-11-06 16:47] LABS: Blood Urea Nitrogen 61 mg/dL (8-23); Calcium 8.9 mg/dL (8.5-10.5); Carbon Dioxide 27 mmol/L (22-29); Chloride 95 mmol/L (98-107); Glomerular Filtration Rate 22.1 mL/min (90-130); Glucose 191 mg/dL (65-115); Osmolality Calculated 300 mOsm/kg (285-295); Sodium 134 mmol/L (136-145)
[2023-11-06 17:15] LABS: Glucose Point of Care 168 mg/dL (70-110)
--- NOTE | 2023-11-06 18:30 | PC.NURSE ---
notified dr alanis regarding Lasix drip and she wants to hold the drip and give IVP 80 mg of lasix.
[2023-11-06] MEDS: FUROsemide 10 mg/mL SDV 10mL 80 MG IVP (19:18)
--- NOTE | 2023-11-06 19:19 | PC.NURSE ---
Spoke with regrading request that patient be transfered to ICU due to no urine output from Lasix gtt and may require temporary dialysis cath and dialysis. to put in orders for transfer.
--- NOTE | 2023-11-06 19:30 | PC.NURSE ---
pt spo2 is down to 78-80%, check on pt and she removed her nasal cannula again from her nose. Applied 5 L NC back on and educated pt &told her we have to put the BIPAP back on to give her appropriate O2 and ventilation due to her oxygen is getting very loq down to 80s%. Pt let us apply her bipap back on fio2-35%.
[2023-11-06 21:37] LABS: Glucose Point of Care 198 mg/dL (70-110)
[2023-11-06 22:10] LABS: Partial Thromboplastin Time 64.5 SECONDS (23.9-36.7)
[2023-11-06 22:13] LABS: Blood Urea Nitrogen 68 mg/dL (8-23); Calcium 9.1 mg/dL (8.5-10.5); Carbon Dioxide 27 mmol/L (22-29); Chloride 93 mmol/L (98-107); Glucose 203 mg/dL (65-115); Osmolality Calculated 302 mOsm/kg (285-295); Sodium 133 mmol/L (136-145)
--- NOTE | 2023-11-06 23:07 | PC.NURSE ---
called and Spoke with regarding patients BMP results and urine output. ordered one time 30gm PO kayexalate and 100MEQ bicarb IVP. Repeat BMP in 4 hours after medications given.
[2023-11-06] MEDS: sodium polystyrene sulfonate 15 gm/60 mL Btl 30 GM PO (23:13)
[2023-11-07] VITALS (53 sets, daily range): BP systolic 94–145; BP diastolic 63–106; PULSE 67–110; RESP 6–30; TEMP 33.9–36.9; O2SAT 84–96; BMI 63.1
--- NOTE | 2023-11-07 00:45 | PC.NURSE ---
Report was called to Latosha SOARES. Patient was transfered to ICU 10 in bed with all patient belongings and chart.
[2023-11-07] MEDS: sodium bicarbonate 8.4% 1 mEq/mL 50mL Syr 100 MEQ IVP ×2 (00:56→05:09)
--- NOTE | 2023-11-07 01:45 | PC.NURSE ---
Heparin Due to possibility of thoracentesis today, order received to pause heparin drip at 0130. See MAR for details.
--- NOTE | 2023-11-07 02:35 | PC.NURSE ---
Confusion Patient becoming increasingly confused, beginning to pull at monitoring wires as well as nasal cannula while patient's skin becoming increasingly more dusky. Bipap placed on patient and RT notified of bipap application.
[2023-11-07] MEDS: methylPREDNISolone sod succ 40 mg/mL INJ IVP ×2 (03:22→17:50)
[2023-11-07] MEDS: piperacillin-tazobactam 3.375 GM in sodium chloride 0.9% (plus) 50 ML IV ×2 (03:22→18:42)
[2023-11-07 03:53] LABS: Hematocrit 41.9 % (36-47); Lymphocytes # 0.5 10^3/uL (0.8-4.8); Mean Corpuscular HGB Conc 30.1 g/dL (30-55); Mean Corpuscular Hemoglobin 29.1 pg (27-33); Mean Corpuscular Volume 96.8 fl (85-98); Mean Platelet Volume 10.9 fL (7.4-10.4); Monocytes # 0.7 10^3/uL (0.2-0.9); Monocytes % 7.1 %; Neutrophils # 8.94 10^3/uL (1.8-7.7); Neutrophils % 87.6 %; Nucleated Red Blood Cells % 0.2 %; Platelet Count 262 10^3/cmm (157-399); Red Blood Count 4.33 10^6/uL (3.85-5.65); Red Cell Distribution Width 15.9 % (12.1-15.1); White Blood Count 10.21 10^3/uL (3.29-11.43)
--- NOTE | 2023-11-07 04:00 | PC.NURSE ---
Confusion Bipap placed on patient multiple times. Patient confused, yelling, and ripping bipap off of her face. Reorientation and education provided to no avail. Patient stating I'm going to , then yelling incomprehensible sounds. Furthermore, patients lips and face increasingly pale and dusky. Dr. Luz contacted; orders received for an ABG as well as 5 mg zyprexa IM once now. See MAR for details.
[2023-11-07 04:11] LABS: Partial Thromboplastin Time 31.1 SECONDS (23.9-36.7)
[2023-11-07 04:19] LABS: Anion Gap 19.5 (5-19); Blood Urea Nitrogen 67 mg/dL (8-23); Calcium 9.6 mg/dL (8.5-10.5); Carbon Dioxide 27 mmol/L (22-29); Chloride 95 mmol/L (98-107); Glucose 199 mg/dL (65-115); Lactate Dehydrogenase 742 U/L (135-214); Magnesium 3.2 mg/dL (1.7-2.3); Osmolality Calculated 305 mOsm/kg (285-295); Phosphorus 6.6 mg/dL (2.5-4.5); Sodium 135 mmol/L (136-145)
[2023-11-07 04:20] LABS: Potassium 6.5 mmol/L (3.5-5.1); Total Protein 6.6 g/dL (6.6-8.7)
[2023-11-07] MEDS: ipratropium 0.5 mg/2.5 mL Neb INHALATION ×5 (04:22→21:06)
[2023-11-07] MEDS: levalbuterol 0.63 mg/3 mL Neb INHALATION ×5 (04:22→21:05)
[2023-11-07 04:29] LABS: ABG PH Result 7.19 (7.35-7.45); Base Excess ABG -0.5 mmol/L (-2.0-2.0); Blood Gas Allen Test Pos; Blood Gas Sample Site Radial, left; Blood Gas Sample Type Arterial; Carboxyhemoglobin 1.4 %THgb (0.4-20.1); HCO3 ABG 29.8 mmol/L (22-26); HGB O2 Sat 92.9 % (95-100); Ionized Calcium Level - ABG 1.2 mmol/L (1.1-1.4); Methemoglobin 0.5 % (0.4-1.5); Oxygen Device NC; Oxygen Saturation ABG 94.6; PO2 ABG 82.2 mmHg (80.0-100.0); PO2 FiO2 Ratio Arterial Blood 0; Potassium Level - ABG 5.9 mmol/L (3.5-5.0); Total Hemoglobin 13.7 g/dL (12-16)
[2023-11-07 04:30] LABS: ABG PCO2 77.3 mmHg (35-45)
--- NOTE | 2023-11-07 04:40 | PC.NURSE ---
Potassium Patient's potassium level resulted critical at 6.5. Dr. Hernandez notified; orders received to administer 80 mg lasix IVP once, 2 amps bicarb IVP once, and 2 gm calcium gluconate IV once. See MAR for details.
[2023-11-07] MEDS: OLANZapine 10 mg VIAL 5 MG IM (04:52)
[2023-11-07] MEDS: FUROsemide 10 mg/mL SDV 10mL 80 MG IVP (04:54)
[2023-11-07] MEDS: calcium gluconate 0.9% NaCL 1 GM/50 ML PREMIX IV ×2 (06:14→06:48)
[2023-11-07 06:17] LABS: INR 1.16 (0.8-1.2)
[2023-11-07] MEDS: dexmedeTOMIDine 0.9 % NaCL 400 MCG/100 ML PREMIX IV (06:51)
--- NOTE | 2023-11-07 07:00 | PC.NURSE ---
Confusion Patient remaining confused and anxious, continuously attempting to remove bipap mask as well as monitoring wires. Dr. Luz notified and orders received for a 1:1 sitter as well as precedex drip. See MAR for details.
[2023-11-07] MEDS: budesonide 0.5 mg/2 mL Neb INHALATION ×2 (07:37→21:06)
[2023-11-07 08:38] LABS: Vancomycin Trough 24.5 ug/mL (10-15)
[2023-11-07] MEDS: dexmedeTOMIDine 0.9 % NaCL 400 MCG/100 ML PREMIX 22.64 MCG IV (09:33)
[2023-11-07] MEDS: sodium bicarbonate 8.4% 1 mEq/mL 50mL Syr 50 MEQ IVP (09:53)
[2023-11-07] MEDS: albumin 25 G/100 ML BAG 60 G IV ×3 (09:53→23:21)
--- NOTE | 2023-11-07 09:56 | XR_ITS ---
WS: [id number] Portable AP semiupright chest, 11/07/2023 Clinical Data: verify dialysis placement Comparison: Portable chest, 11/02/2023 Findings: The bilateral lower lobe opacities remain the same. There is greater opacity on the right t meza the left. The heart remains enlarged. There is a left internal jugular venous catheter which ends at the caval atrial junction. No lung masses are seen. There is no pneumothorax. Monitor leads are o n the chest wall. Impression: 1. No change in bilateral lower lobe opacities. New line 2. No change in cardiomegaly. 3. Internal jugular venous catheter ends at the caval atrial junction.
[2023-11-07 10:08] LABS: ABG PCO2 59.9 mmHg (35-45); ABG PH Result 7.34 (7.35-7.45); Alveolar-Arterial Oxygen Gradi 18.8 mmHg (5-10); Arterial Blood Gas Hematocrit 41.2 % (37-47); Base Excess ABG 4.8 mmol/L (-2.0-2.0); Blood Gas Allen Test Pos; Blood Gas Operator Identificat CAK; Blood Gas Sample Site Radial, left; Blood Gas Sample Type Arterial; Carboxyhemoglobin 0.9 %THgb (0.4-20.1); HCO3 ABG 32.3 mmol/L (22-26); HGB O2 Sat 93.2 % (95-100); Ionized Calcium Level - ABG 1.2 mmol/L (1.1-1.4); Methemoglobin 0.4 % (0.4-1.5); Oxygen Device BIPAP; Oxygen Saturation ABG 94.4; PO2 ABG 72.1 mmHg (80.0-100.0); PO2 FiO2 Ratio Arterial Blood 0; Potassium Level - ABG 5.7 mmol/L (3.5-5.0); Total Hemoglobin 13.4 g/dL (12-16)
--- NOTE | 2023-11-07 10:11 | P.CONIM_ITS ---
Providers/Reason For Consult 2 Consulting Physician/Specialty*: General surgery Reason for Consult*: Need for dialysis Attending Physician: Leslee Petersen MD Primary Care Provider: Moshe Roberson History of Present Illness History of Present Illness Lizeth Adams is a 68 year old female who was admitted with several medical comorbidities including exacerbated heart failure, cardiorenal syndrome, COPD, morbid obesity, anasarca patient was noted to be acidotic and hyperkalemic, dialysis was indicated and therefore I was consulted for dialysis catheter placement. Review of Systems 2 General: Reports: ROS unobtainable due to medical condition Medications/Allergies Home Medications Medication Instructions Recorded Confirmed Last Taken Type aspirin 325 mg tablet See Rx Instructions PO BID 09/14/23 11/03/23 11/02/23 History Allergies Allergy/AdvReac Type Severity Reaction Status Date / Time iodine Allergy Unknown Verified 11/02/23 22:58 Current Medications Generic Name Dose Route Start Last Admin Trade Name Freq PRN Reason Stop Dose Admin Amiodarone HCl 200 mg 11/05/23 11:10 11/06/23 18:20 Amiodarone 200 Mg Tablet PO 200 mg BID LOTUS Administration Budesonide 0.5 mg 11/03/23 20:00 11/07/23 07:37 Budesonide 0.5 Mg/2 Ml Neb INHALATION 0.5 mg BID.RESPIRATORY LOTUS Administration Docusate Sodium 100 mg 11/04/23 18:00 11/06/23 18:20 Docusate Sodium 100 Mg Capsule PO 100 mg BID LOTUS Administration Furosemide 40 mg 11/03/23 03:30 11/03/23 03:52 Furosemide 10 Mg/Ml Sdv 4ml IVP 40 mg Q12H LOTUS Administration Heparin Sodium (Porcine) 0 unit 11/03/23 10:45 11/05/23 02:46 Heparin 5,000 Unit/Ml Inj 1 Ml IV 5,000 unit PRN PRN Administration Heparin weight-base protocol Protocol Heparin Sodium/Sodium Chloride 25,000 unit in 500 mls @ 0 mls/hr 11/03/23 10:45 11/07/23 01:30 Heparin Drip IV 0 unit/kg/hr .Q0M LOTUS 0 mls/hr Titration Protocol Per Protocol Piperacillin Sod/Tazobactam 50 mls @ 12.5 mls/hr 11/04/23 11:00 11/07/23 03:22 Sod 3.375 gm/ Sodium Chloride IV 12.5 mls/hr Q8H LOTUS Administration Protocol Albumin Human 25 g in 100 mls @ 60 mls/hr 11/04/23 15:15 11/07/23 09:53 Albumin IV 60 mls/hr Q8H LOTUS Administration Furosemide 100 mg/ Sodium 50 mls @ 0 mls/hr 11/06/23 12:15 11/06/23 19:00 Chloride IV 0 mg/hr .Q0M LOTUS 0 mls/hr Titration Protocol Per Protocol Dexmedetomidine/Sodium Chloride 400 mcg in 100 mls @ 0 mls/hr 11/07/23 06:45 11/07/23 09:33 Precedex IV 0.6 mcg/kg/hr .Q0M LOTUS 22.64 mls/hr Administration Protocol Per Protocol Insulin Human Lispro 0 unit 11/03/23 08:00 11/07/23 09:53 Insulin Lispro 100 Unit/1 Ml SUBCUT Not Given WM&BEDTIME LOTUS Protocol Ipratropium [place] 0.5 mg 11/03/23 20:00 11/07/23 07:38 Ipratropium 0.5 Mg/2.5 Ml Neb INHALATION 0.5 mg Q4H.RESPIRATORY LOTUS Administration Levalbuterol HCl 0.63 mg 11/03/23 20:00 11/07/23 07:38 Levalbuterol 0.63 Mg/3 Ml Neb INHALATION 0.63 mg Q4H.RESPIRATORY LOTUS Administration Magnesium Hydroxide 30 ml 11/05/23 15:00 11/06/23 08:47 Magnesium Hydroxide 30 Ml Udc PO 30 ml DAILY LOTUS Administration Methylprednisolone Sodium Succinate 40 mg 11/03/23 19:30 11/07/23 03:22 Methylprednisolone Sod Succ 40 Mg/Ml Inj IVP 40 mg Q8H LOTUS Administration Metoprolol Tartrate 25 mg 11/03/23 03:55 11/06/23 20:48 Metoprolol Tartrate 25 Mg Tablet PO 25 mg BID@0900,2100 LOTUS Administration Pantoprazole Sodium 40 mg 11/03/23 09:00 11/06/23 08:[address] 40 Mg Tablet PO 40 mg DAILY LOTUS Administration Senna/Docusate Sodium 1 tab 11/04/23 18:00 11/06/23 18:20 Sennosides-Docusate Tablet PO 1 tab BID LOTUS Administration PFSH Acute 2 PFSH: Medical History (Updated 11/05/23 @ 15:17 by Emilio Aguayo MD) COPD (chronic obstructive pulmonary disease) Enlarged and hypertrophic nails Morbid obesity Obstructive sleep apnea Uncontrolled diabetes mellitus Type 2 diabetes mellitus Surgical History (Updated 11/03/23 @ 12:11 by Emilio Aguayo MD) No pertinent past surgical history Family History Father Diabetes mellitus, type 2 Grandmother Cancer paternal Social History Smoking and tobacco/nicotine status: current every day tobacco/nicotine user cigarettes Packs smoked per day: 1 Alcohol intake: never Substance/Drug Use: never Adopted: No Caregiver/support person: No Lives independently: Yes service: No Current occupational status: retired and disabled Current gender identity: Female Agree to transfusion: No Vitals/I&O/Wt Last Vital Signs Temp 98.5 F 11/07/23 04:30 Pulse 91 11/07/23 07:40 Resp 22 H 11/07/23 07:40 BP 145/98 11/07/23 07:30 Pulse Ox 94 11/07/23 07:40 O2 Del Method BiPAP 11/07/23 07:40 O2 Flow Rate 3 11/07/23 04:24 FiO2 40 11/07/23 07:40 11/06/23 11/07/23 11/07/23 22:59 06:59 14:59 Intake Total 407.15 / 1271.650 354 / 1625.650 13.774 / 13.774 Output Total 150 / 150 50 / 200 Balance 257.15 / 1121.650 304 / 1425.650 13.774 / 13.774 Weight last 48 hrs Weight 334 lb Weight 332 lb 12.8 oz Physical Exam 2 Narrative: Patient is sedated, nonresponsive ? Extreme extremity edema and lower abdominal edema, morbid obesity ? Abdomen with pitting edema Urinary Catheter Management: Bautista: Cath Placed During This Visit: no Reason for Continuing Indwelling Catheter: Other Data 11/07/23 03:44 11/07/23 03:44 Micro: Microbiology 11/03/23 14:49 Legionella Urinary Antigen - Final Unknown Source A&P Assessment and plan (1) Morbid obesity: (2) CHF (congestive heart failure): Qualifiers: Heart failure chronicity: acute on chronic (3) Acute kidney injury: (4) Respiratory acidosis: Plan After a complete history physical examination and review of all available clinical data the following is my assessment. Patient will benefit from dialysis catheter placement. After discussion of risk and benefits with the family including the risk of pneumothorax requiring tube thoracostomy injury to adjacent structures perforation of the great vessels and even family members have decided to proceed with dialysis catheter placement. After interrogating bilateral IJ's and bilateral groins the only suitable place for access was the left IJ vein. Left IJ vein catheter was placed without complications, patient can receive dialysis once x-ray is done. Coding Level of Care Code 51478 Diagnoses Morbid obesity E66.01 CHF (congestive heart failure) I50.9 Heart failure chronicity: acute on chronic Acute kidney injury N17.9 Respiratory acidosis E87.29
--- NOTE | 2023-11-07 10:15 | PM.ACPR ---
Procedure/Consent Time out: Time Out Performed: Yes Procedure Narrative: Patient was placed in the supine position with a slight Trendelenburg, the left neck was prepped and draped in the usual sterile fashion. Timeout was conducted. The left IJ vein was then cannulated under ultrasound visualization with a 18-gauge needle and a wire was advanced, needle was removed and wire position was verified with ultrasound. A small incision was made at the knee and catheter insertion site on the neck, the tract was dilated over the wire with subsequent sites of dilators. A 20 cm dialysis catheter was then advanced over the wire and the wire was removed, excellent blood return was noted and both ports were flushing fine. The catheter was fixed to the skin with #3-0 silk. Biopatch and sterile dressing was applied. At the end of the procedure patient remained in critical but stable condition. Acute Procedures Epistaxis Control: Time out performed: Yes
[2023-11-07 10:43] LABS: Anion Gap 18.2 (5-19); Blood Urea Nitrogen 66 mg/dL (8-23); Calcium 9.3 mg/dL (8.5-10.5); Carbon Dioxide 31 mmol/L (22-29); Chloride 95 mmol/L (98-107); Glucose 213 mg/dL (65-115); Osmolality Calculated 311 mOsm/kg (285-295); Potassium 6.2 mmol/L (3.5-5.1); Sodium 138 mmol/L (136-145)
[2023-11-07] MEDS: dextrose 50% syringe 50 mL IVP (11:25)
[2023-11-07] MEDS: insulin regular-human 10 UNIT in SYRINGE 1 EACH 100 UNIT IVP ×2 (11:26→12:05)
[2023-11-07 11:38] LABS: Glucose Point of Care 316 mg/dL (70-110)
--- NOTE | 2023-11-07 13:35 | P.PN_ITS ---
Subjective 2 Subjective: overnight events noted developed hyperkalemia and became anuric Medications: Reviewed: Yes Vitals/I&O/Wt Last Vital Signs Temp 96.4 F L 11/07/23 12:52 Pulse 67 11/07/23 12:52 Resp 20 H 11/07/23 12:52 BP 122/87 11/07/23 12:52 Pulse Ox 94 11/07/23 11:54 O2 Del Method BiPAP 11/07/23 11:54 O2 Flow Rate 3 11/07/23 04:24 FiO2 40 11/07/23 11:54 11/06/23 11/07/23 11/07/23 22:59 06:59 14:59 Intake Total 407.15 / 1271.650 354 / 1625.650 213.874 / 213.874 Output Total 150 / 150 50 / 200 Balance 257.15 / 1121.650 304 / 1425.650 213.874 / 213.874 Weight last 48 hrs Weight 151.5 kg Weight 150.956 kg Physical Exam 2 Narrative: awake, alert no ditress s1s2 rrr no edema Urinary Catheter Management: Bautista: Cath Placed During This Visit: no Reason for Continuing Indwelling Catheter: Other Data 11/07/23 03:44 11/07/23 09:34 Micro: Microbiology 11/03/23 14:49 Legionella Urinary Antigen - Final Unknown Source A&P Assessment and plan (1) Cardiorenal syndrome with renal failure: (2) Acute kidney injury: (3) Hyperkalemia: Plan 1. Acute on chronic kidney disease: Associated with hyperkalemia and volume overload. No significant response to diuretics, - no response to lasix gtt , plan to start HD via temporary catheter 2. Hyperkalemia: Placed on low K diet, medical management including Kayexalate and bicarb and calcium. 3. History of CHF now with volume overload , Poor response to diuretics, 4. History of COPD Patient evaluated using audiovisual cart. Time spent 20 minutes. Attestations 2 Medical Necessity Statement*: per [facility] Coding Level of Care Code Acute Code for g Fwd Diagnoses Cardiorenal syndrome with renal failure I13.10 Acute kidney injury N17.9 Hyperkalemia E87.5
--- NOTE | 2023-11-07 14:15 | P.PN_ITS ---
Subjective 2 Subjective: Seen this morning. Patient quite sleepy. She is currently on a Precedex drip. Overnight required Precedex because she kept trying to take her BiPAP off. She has become an uric over the last 24 hours. Lasix drip was given yesterday. Patient was moved to ICU for potential need of dialysis. Surgeon has been called and he will be placing a temporary dialysis catheter this morning. Subsequently patient will have initiation of dialysis done. She was also hyperkalemic which was treated overnight and she has received 2 A of bicarb so far. pH 7.19/77. Currently on BiPAP. We will be repeating an ABG right now. Talk with her daughter over the phone and explained patient's case. Patient is to remain DNR/DNI. Daughter will be coming to visit patient today. Daughter consented for temp dialysis catheter and dialysis at this time. Explained to her that dialysis may be temporary or permanent. Vitals/I&O/Wt Last Vital Signs Temp 96.4 F L 11/07/23 12:52 Pulse 67 11/07/23 12:52 Resp 20 H 11/07/23 12:52 BP 122/87 11/07/23 12:52 Pulse Ox 94 11/07/23 11:54 O2 Del Method BiPAP 11/07/23 11:54 O2 Flow Rate 3 11/07/23 04:24 FiO2 40 11/07/23 11:54 11/06/23 11/07/23 11/07/23 22:59 06:59 14:59 Intake Total 407.15 / 1271.650 354 / 1625.650 313.874 / 313.874 Output Total 150 / 150 50 / 200 Balance 257.15 / 1121.650 304 / 1425.650 313.874 / 313.874 Weight last 48 hrs Weight 151.5 kg Weight 150.956 kg Physical Exam 2 Narrative: General: No acute distress, currently on BiPAP, morbidly obese, responds to her name and moans HEENT: EOMI, NC/AT Chest: Bilateral bronchial breath sounds all over lung fleming, decreased air entry all over lung fleming with diffuse rhonchi Extremity: Bilateral lower limb swelling 1+ up to the knee, old skin changes present consistent with peripheral vascular disease CVS: S1-S2 regular, difficult auscultation due to body habitus. Abdomen: Soft, nontender, no organomegaly, bowel sounds present Neuro: No focal deficits, no facial deformity, moves all 4 extremities. Urinary Catheter Management: Bautista: Cath Placed During This Visit: no Reason for Continuing Indwelling Catheter: Other Data 11/07/23 03:44 11/07/23 09:34 Micro: Microbiology 11/03/23 14:49 Legionella Urinary Antigen - Final Unknown Source A&P Assessment and plan (1) Respiratory acidosis: (2) Acute on chronic respiratory failure with hypoxia and hypercapnia: (3) COPD (chronic obstructive pulmonary disease): (4) Obstructive sleep apnea: (5) Pneumonia: (6) CHF (congestive heart failure): Qualifiers: Heart failure chronicity: acute on chronic (7) Atrial fibrillation: Qualifiers: Atrial fibrillation type: persistent (not longstanding) Qualified Code(s): I48.19 - Other persistent atrial fibrillation (8) Acute kidney injury: (9) Hyperkalemia: (10) Type 2 diabetes mellitus: (11) Morbid obesity: (12) Transaminitis: (13) Anasarca: (14) Moderate pulmonary hypertension: (15) Breast mass, right: (16) Pleural effusion, right: (17) Cardiorenal syndrome with renal failure: Plan 68-year-old lady with a past medical history of diabetes mellitus, reported history of COPD presenting to the ER today with 2 months of worsening dyspnea and anasarca. Upon admission she was in COPD exacerbation. She has been noncompliant to her BiPAP CPAP leading to right heart failure with the possibility of diastolic congestive heart failure in setting of A-fib with RVR at admission. Lower limb Dopplers negative for DVT. Echocardiogram showed EF of 55% without regional wall motion abnormalities dilated and mildly hypokinetic right ventricle with moderate to severe pulmonary hypertension and dilated IVC. This was most likely secondary to longstanding obstructive sleep apnea and COPD. CTA did not show any PE. Patient has been on heparin drip due to A-fib. CT chest did show a possible breast mass and possible consolidation in the right lower lobe along with pleural effusion for which patient has been on vancomycin and Zosyn. She was also getting albumin every 8 hours. Lasix drip tried and IV push Lasix tried however patient became an uric and acidotic secondary to renal failure and has required dialysis at this point. Temporary catheter placed and dialysis started. For atrial fibrillation she is now on amiodarone 200 twice daily and metoprolol 25 twice daily. #Acute renal failure #Hyperkalemia #Acute on chronic hypoxic hypercapnic respiratory failure #Obstructive sleep apnea #Noncompliance #Right-sided heart failure #Severe pulmonary hypertension #Atrial fibrillation with RVR #Right-sided breast mass #Type 2 diabetes mellitus #Hyperphosphatemia ? Dopplers negative for DVT ? Echo shows an EF of 50 to 55% without regional wall motion abnormality, dilated and mildly hypokinetic right ventricle with RVSP of 50 mmHg consistent with moderate to severe pulmonary hypertension, dilated IVC. ? CT chest shows right breast mass and consolidation right lower lobe along with pleural effusion. Patient not interested in further workup for that. Daughter aware as well ? Patient has been on albumin every 8 hours. Secondary to salt load I will stop that at this time. ? She has not responded to Lasix. ? Consult general surgery for placement of temporary dialysis catheter and start dialysis today. ? Hyperkalemia treated with calcium gluconate, insulin dextrose, she has received 3 A of bicarb so far. ? Repeat labs after dialysis ? Sliding scale Insulin low-dose ACHS - continue with ipratropium, Xopenex every 4 hours, Pulmicort twice daily. - Continue with IV Solu-Medrol 40 mg every 12 hours. ? Continue metoprolol 25 twice daily, amiodarone 200 twice daily ? Continue IV vancomycin and Zosyn. Renally dose. Antibiotic started 10/25/2023. Will complete 7 days total. ? Continue heparin drip -Daughter updated over the phone ? Repeat chest x-ray in a.m. ? Stop Precedex drip Morbid obesity CODE STATUS: Discussed in detail with the patient. Patient does not want any intubation or life support or chest compression. Changed to DNR/DNI. Patient's daughter will be DPOA. Carb consistent cardiac diet Protonix for PUD prophylaxis Heparin drip will suffice for DVT prophylaxis. Out of bed to chair. Attestations 2 Medical Necessity Statement*: Patient requires further hospitalization for management of acute hypercapnic and hypoxic respiratory failure in setting of severe COPD and obstructive sleep apnea leading to right-sided heart failure and cardiorenal syndrome, A-fib with RVR Diagnoses Respiratory acidosis E87.29 Acute on chronic respiratory failure with hypoxia and hypercapnia J96.21; J96.22 COPD (chronic obstructive pulmonary disease) J44.9 Obstructive sleep apnea G47.33 Pneumonia J18.9 CHF (congestive heart failure) I50.9 Heart failure chronicity: acute on chronic Atrial fibrillation I48.19 Atrial fibrillation type: persistent (not longstanding) Acute kidney injury N17.9 Hyperkalemia E87.5 Type 2 diabetes mellitus E11.9 Morbid obesity E66.01 Transaminitis R74.01 Anasarca R60.1 Moderate pulmonary hypertension I27.20 Breast mass, right N63.10 Pleural effusion, right J90 Cardiorenal syndrome with renal failure I13.10
[2023-11-07] MEDS: vancomycin 1,250 MG/250 ML PIGGYBACK 250 MG IV (15:11)
[2023-11-07 17:49] LABS: Glucose Point of Care 166 mg/dL (70-110)
[2023-11-07 18:31] LABS: Hepatitis B Core AB, Total Non-Reactive (Nonreactive); Hepatitis B Surface AB 13.7 (11.5-1000); Hepatitis B Surface Antigen Non-Reactive (Nonreactive)
[2023-11-07] MEDS: heparin drip 25,000 UNIT/500 ML PREMIX 41 UNIT IV (19:20)
--- NOTE | 2023-11-07 20:30 | PC.NURSE ---
Axillary temp 93.0, kristine hugger placed on patient. Notified Dr. Luz of axillary temp of 93.0 and kristine hugger placed on patient. Updated Dr. Luz of patients admit diagnosis and current antibiotics ordered. No further orders given.
[2023-11-07 21:03] LABS: Glucose Point of Care 173 mg/dL (70-110)
[2023-11-07] MEDS: insulin lispro 100 unit/1 mL SUBCUT (21:04)
--- NOTE | 2023-11-07 21:15 | PC.NURSE ---
Telephone consent obtained from patients daughter Michelle Price for PICC insertion and Albumin administration. Verified by Park Arguello RN.
[2023-11-07 21:43] LABS: Partial Thromboplastin Time 31.6 SECONDS (23.9-36.7)
[2023-11-07] MEDS: heparin 5,000 unit/mL INJ 1 mL IV (22:00)
--- NOTE | 2023-11-07 23:18 | XRR_ITS ---
PROCEDURE INFORMATION: Exam: XR Chest Exam date and time: 11/07/2023 11:45 PM Age: 68 years old Clinical indication: Device placement; Picc; Additional info: For picc placement TECHNIQUE: Imaging protocol: Radiologic exam of the chest. Views: 1 view. COMPARISON: CR XR chest 1V [id number] 11/07/2023 11:07 AM FINDINGS: Tubes, catheters and devices: New right-sided PICC positioned with its tip in the upper SVC. Lungs: Near-complete whiteout of the right lung which has progressed from the prior examination. Pleural spaces: Unremarkable. No pleural effusion. No pneumothorax. Heart/Mediastinum: Unremarkable. No cardiomegaly. Bones/joints: Unremarkable. XR/XR chest 1V portable [id number] IMPRESSION: 1. New right-sided PICC positioned with its tip in the upper SVC. 2. Near-complete whiteout of the right lung which has progressed from the prior examination.
--- NOTE | 2023-11-07 23:57 | PC.NURSE ---
PICC Insertion Consulted by house charge for PICC placement for poor venous access and IV abx. Upon arrival to room, patient's primary nurse had already obtained written consent from patient's family. Provided verbal education at bedside to patient. US assessment RUE found Right Basilic vein best target for cannulation due to size and lack of evidence of thrombus or stenosis. Using US guidance, MST and sterile technique, accessed vein x1 stick. Advanced device without resistance. Obtained blood return and flushed easily in all lumens. Device secured. Obtained chest x-ray to verify placement. Visualized PICC tip in appropriate location; pending radiologist review. EBL <10ml. Patient tolerated as expected. Handed off to primary nurse.
[2023-11-08] VITALS (48 sets, daily range): BP systolic 100–145; BP diastolic 57–115; PULSE 69–105; RESP 6–29; TEMP 35.8–36.9; O2SAT 83–97
[2023-11-08] MEDS: levalbuterol 0.63 mg/3 mL Neb INHALATION ×7 (00:25→23:03)
[2023-11-08] MEDS: ipratropium 0.5 mg/2.5 mL Neb INHALATION ×7 (00:25→23:03)
[2023-11-08] MEDS: piperacillin-tazobactam 3.375 GM in sodium chloride 0.9% (plus) 50 ML IV ×3 (02:48→19:31)
[2023-11-08] MEDS: methylPREDNISolone sod succ 40 mg/mL INJ IVP ×2 (04:09→17:14)
[2023-11-08 04:21] LABS: Hematocrit 39.8 % (36-47); Lymphocytes # 0.4 10^3/uL (0.8-4.8); Lymphocytes % 5.4 %; Mean Corpuscular HGB Conc 30.7 g/dL (30-55); Mean Corpuscular Hemoglobin 29.1 pg (27-33); Monocytes # 0.6 10^3/uL (0.2-0.9); Monocytes % 7.9 %; Neutrophils # 6.71 10^3/uL (1.8-7.7); Neutrophils % 86.3 %; Nucleated Red Blood Cells % 0.3 %; Platelet Count 195 10^3/cmm (157-399); Red Blood Count 4.19 10^6/uL (3.85-5.65); White Blood Count 7.77 10^3/uL (3.29-11.43)
[2023-11-08 04:39] LABS: Alanine Aminotransferase 227 U/L (0-33); Alkaline Phosphatase 84 U/L (35-105); Blood Urea Nitrogen 67 mg/dL (8-23); Calcium 9.1 mg/dL (8.5-10.5); Carbon Dioxide 30 mmol/L (22-29); Chloride 95 mmol/L (98-107); Globulin 2.1 g/dL (1.3-4.6); Glucose 175 mg/dL (65-115); Magnesium 2.8 mg/dL (1.7-2.3); Osmolality Calculated 308 mOsm/kg (285-295); Sodium 137 mmol/L (136-145); Total Bilirubin 0.5 mg/dL (0.15-1.2); Total Protein 6.1 g/dL (6.6-8.7)
[2023-11-08 04:43] LABS: Aspartate Amino Transferase 140 U/L (0-32)
[2023-11-08 04:59] LABS: Alveolar-Arterial Oxygen Gradi 16.5 mmHg (5-10); Arterial Blood Gas Hematocrit 38.2 % (37-47); Blood Gas Allen Test Pos; Blood Gas Sample Site Radial, left; Blood Gas Sample Type Arterial; Carboxyhemoglobin 1.6 %THgb (0.4-20.1); HCO3 ABG 31.1 mmol/L (22-26); HGB O2 Sat 93.7 % (95-100); Ionized Calcium Level - ABG 1.1 mmol/L (1.1-1.4); Methemoglobin 0.8 % (0.4-1.5); Oxygen Device BIPAP; PO2 ABG 82.4 mmHg (80.0-100.0); PO2 FiO2 Ratio Arterial Blood 0; Potassium Level - ABG 5.3 mmol/L (3.5-5.0); Total Hemoglobin 12.5 g/dL (12-16)
[2023-11-08 05:00] LABS: ABG PCO2 63.8 mmHg (35-45)
[2023-11-08] MEDS: budesonide 0.5 mg/2 mL Neb INHALATION ×2 (07:47→20:13)
[2023-11-08] MEDS: albumin 25 G/100 ML BAG 60 G IV ×3 (08:00→23:33)
[2023-11-08 08:07] LABS: Glucose Point of Care 179 mg/dL (70-110)
[2023-11-08] MEDS: insulin lispro 100 unit/1 mL SUBCUT ×3 (08:15→21:28)
--- NOTE | 2023-11-08 09:18 | PC.SOCIAL ---
IMM Update Updated IMM. Provided pt a copy. Pt is on the Bipap & is not expected to d/c in the next 24-48hrs. Initialed, dated, & timed copy in chart.
[2023-11-08] MEDS: heparin drip 25,000 UNIT/500 ML PREMIX 48.5 UNIT IV (09:44)
[2023-11-08] MEDS: sennosides-docusate Tablet 1 TAB PO ×2 (09:45→17:13)
[2023-11-08] MEDS: docusate sodium 100 mg Capsule PO (09:45)
[2023-11-08] MEDS: amiodarone 200 mg Tablet PO ×2 (09:45→17:13)
[2023-11-08] MEDS: metoprolol tartrate 25 mg Tablet PO ×2 (09:45→21:30)
[2023-11-08] MEDS: magnesium hydroxide 30 mL UDC PO (09:45)
[2023-11-08] MEDS: pantoprazole DR 40 mg Tablet PO (09:45)
[2023-11-08 11:55] LABS: Glucose Point of Care 179 mg/dL (70-110)
--- NOTE | 2023-11-08 12:06 | P.PN_ITS ---
Subjective 2 Subjective: events noted Medications: Reviewed: Yes Vitals/I&O/Wt Last Vital Signs Temp 97.4 F L 11/08/23 08:00 Pulse 98 11/08/23 11:23 Resp 22 H 11/08/23 11:15 BP 125/86 11/08/23 10:30 Pulse Ox 91 11/08/23 11:16 O2 Del Method BiPAP 11/08/23 11:15 O2 Flow Rate 4 11/08/23 10:30 FiO2 40 11/08/23 11:16 11/07/23 11/08/23 11/08/23 22:59 06:59 14:59 Intake Total 728.000 / 1541.974 499.167 / 2041.141 257.4 / 257.4 Output Total 300 / 2300 Balance 728.000 / -458.026 199.167 / -258.859 257.4 / 257.4 Weight last 48 hrs Weight 148.461 kg Weight 147 kg Weight 151.5 kg Weight 150.956 kg Physical Exam 2 Urinary Catheter Management: Bautista: Cath Placed During This Visit: no Reason for Continuing Indwelling Catheter: Accurate Measurement of Urinary Output in Critically Ill Patients Data 11/08/23 04:08 11/08/23 04:08 A&P Assessment and plan (1) Cardiorenal syndrome with renal failure: (2) Acute kidney injury: (3) Hyperkalemia: Plan 1. Acute on chronic kidney disease: Associated with hyperkalemia and volume overload. No significant response to diuretics, - started HD via temporary HD , HD TOODAY 2. Hyperkalemia: Placed on low K diet, medical management including Kayexalate and bicarb and calcium. 3. History of CHF now with volume overload , Poor response to diuretics, 4. History of COPD Patient evaluated using audiovisual cart. Time spent 20 minutes. Attestations 2 Medical Necessity Statement*: per [facility] Coding Level of Care Code Acute Code for [facility] Diagnoses Cardiorenal syndrome with renal failure I13.10 Acute kidney injury N17.9 Hyperkalemia E87.5
--- NOTE | 2023-11-08 12:51 | P.PN_ITS ---
Subjective 2 Subjective: Seen this morning. Laying in bed appearing comfortable at this time. Talkative. Says she is comfortable right now and not in any pain. She will be undergoing another dialysis session today. Vitals/I&O/Wt Last Vital Signs Temp 97.4 F L 11/08/23 08:00 Pulse 98 11/08/23 11:23 Resp 22 H 11/08/23 11:15 BP 125/86 11/08/23 10:30 Pulse Ox 91 11/08/23 11:16 O2 Del Method BiPAP 11/08/23 11:15 O2 Flow Rate 4 11/08/23 10:30 FiO2 40 11/08/23 11:16 11/07/23 11/08/23 11/08/23 22:59 06:59 14:59 Intake Total 728.000 / 1541.974 499.167 / 2041.141 257.4 / 257.4 Output Total 300 / 2300 Balance 728.000 / -458.026 199.167 / -258.859 257.4 / 257.4 Weight last 48 hrs Weight 148.461 kg Weight 147 kg Weight 151.5 kg Weight 150.956 kg Physical Exam 2 Narrative: General: No acute distress, currently on nasal cannula feeling well. HEENT: EOMI, NC/AT Chest: Bilateral bronchial breath sounds all over lung fleming, decreased air entry all over lung fleming with diffuse rhonchi Extremity: Bilateral lower limb swelling 1+ up to the knee, old skin changes present consistent with peripheral vascular disease CVS: S1-S2 regular, difficult auscultation due to body habitus. Abdomen: Soft, nontender, no organomegaly, bowel sounds present Neuro: No focal deficits, no facial deformity, moves all 4 extremities. Urinary Catheter Management: Bautista: Cath Placed During This Visit: no Reason for Continuing Indwelling Catheter: Accurate Measurement of Urinary Output in Critically Ill Patients Data 11/08/23 04:08 11/08/23 04:08 A&P Assessment and plan (1) Respiratory acidosis: (2) Acute on chronic respiratory failure with hypoxia and hypercapnia: (3) COPD (chronic obstructive pulmonary disease): (4) Obstructive sleep apnea: (5) Pneumonia: (6) CHF (congestive heart failure): Qualifiers: Heart failure chronicity: acute on chronic (7) Atrial fibrillation: Qualifiers: Atrial fibrillation type: persistent (not longstanding) Qualified Code(s): I48.19 - Other persistent atrial fibrillation (8) Acute kidney injury: (9) Hyperkalemia: (10) Type 2 diabetes mellitus: (11) Morbid obesity: (12) Transaminitis: (13) Anasarca: (14) Moderate pulmonary hypertension: (15) Breast mass, right: (16) Pleural effusion, right: (17) Cardiorenal syndrome with renal failure: Plan 68-year-old lady with a past medical history of diabetes mellitus, reported history of COPD presenting to the ER today with 2 months of worsening dyspnea and anasarca. Upon admission she was in COPD exacerbation. She has been noncompliant to her BiPAP CPAP leading to right heart failure with the possibility of diastolic congestive heart failure in setting of A-fib with RVR at admission. Lower limb Dopplers negative for DVT. Echocardiogram showed EF of 55% without regional wall motion abnormalities dilated and mildly hypokinetic right ventricle with moderate to severe pulmonary hypertension and dilated IVC. This was most likely secondary to longstanding obstructive sleep apnea and COPD. CTA did not show any PE. Patient has been on heparin drip due to A-fib. CT chest did show a possible breast mass and possible consolidation in the right lower lobe along with pleural effusion for which patient has been on vancomycin and Zosyn. She was also getting albumin every 8 hours. Lasix drip tried and IV push Lasix tried however patient became an uric and acidotic secondary to renal failure and has required dialysis at this point. Temporary catheter placed and dialysis started. For atrial fibrillation she is now on amiodarone 200 twice daily and metoprolol 25 twice daily. #Acute renal failure #Hyperkalemia #Acute on chronic hypoxic hypercapnic respiratory failure #Obstructive sleep apnea #Noncompliance #Right-sided heart failure #Severe pulmonary hypertension #Atrial fibrillation with RVR #Right-sided breast mass #Type 2 diabetes mellitus #Hyperphosphatemia ? Dopplers negative for DVT ? Echo shows an EF of 50 to 55% without regional wall motion abnormality, dilated and mildly hypokinetic right ventricle with RVSP of 50 mmHg consistent with moderate to severe pulmonary hypertension, dilated IVC. ? CT chest shows right breast mass and consolidation right lower lobe along with pleural effusion. Patient not interested in further workup for that. Daughter aware as well ? Patient has been on albumin every 8 hours as needed Temp dialysis catheter placed. Patient had dialysis session yesterday. Second session to take place today. ? Hyperkalemia treated with calcium gluconate, insulin dextrose, she has received 3 A of bicarb so far 11/07. Potassium 6 again today. She is due for dialysis.. ? Repeat labs after dialysis ? Sliding scale Insulin low-dose ACHS - continue with ipratropium, Xopenex every 4 hours, Pulmicort twice daily. - Continue with IV Solu-Medrol 40 mg every 12 hours. ? Continue metoprolol 25 twice daily, amiodarone 200 twice daily ? Continue IV vancomycin and Zosyn. Renally dose. Antibiotic started 10/25/2023. Will complete 7 days total. ? Continue heparin drip ? Repeat chest x-ray in a.m. ? Precedex drip stopped 11/07. ? Patient is on a heparin drip. Requires monitoring of PTT every 6 hours. It is a high risk medication. Morbid obesity CODE STATUS: Discussed in detail with the patient. Patient does not want any intubation or life support or chest compression. Changed to DNR/DNI. Patient's daughter will be DPOA. Carb consistent cardiac diet Protonix for PUD prophylaxis Heparin drip will suffice for DVT prophylaxis. Out of bed to chair. Attestations 2 Medical Necessity Statement*: Patient requires further hospitalization for management of acute hypercapnic and hypoxic respiratory failure in setting of severe COPD and obstructive sleep apnea leading to right-sided heart failure and cardiorenal syndrome, A-fib with RVR Diagnoses Respiratory acidosis E87.29 Acute on chronic respiratory failure with hypoxia and hypercapnia J96.21; J96.22 COPD (chronic obstructive pulmonary disease) J44.9 Obstructive sleep apnea G47.33 Pneumonia J18.9 CHF (congestive heart failure) I50.9 Heart failure chronicity: acute on chronic Atrial fibrillation I48.19 Atrial fibrillation type: persistent (not longstanding) Acute kidney injury N17.9 Hyperkalemia E87.5 Type 2 diabetes mellitus E11.9 Morbid obesity E66.01 Transaminitis R74.01 Anasarca R60.1 Moderate pulmonary hypertension I27.20 Breast mass, right N63.10 Pleural effusion, right J90 Cardiorenal syndrome with renal failure I13.10
[2023-11-08] MEDS: heparin, porcine 1,000 unit/mL INJ 10 mL 1000 UNIT IV (13:45)
[2023-11-08] MEDS: heparin, porcine 1,000 unit/mL INJ 10 mL 10000 UNIT INTRACATH (14:15)
[2023-11-08 14:50] LABS: Partial Thromboplastin Time > 250.0 SECONDS (23.9-36.7)
[2023-11-08] MEDS: vancomycin 1,250 MG/250 ML PIGGYBACK 250 MG IV (17:13)
[2023-11-08 17:39] LABS: Glucose Point of Care 118 mg/dL (70-110)
[2023-11-08 19:16] LABS: Partial Thromboplastin Time > 250.0 SECONDS (23.9-36.7)
--- NOTE | 2023-11-08 22:17 | PC.NURSE ---
Contacted hospitalist regarding patient PTT >250 at 191. Order given to redraw PTT. PTT redrawn and nott resulted as lab states specimen was hemolyzed. Additional specimen drawn and resulted at 2114. PTT still supratherapeutic at 108. Contacted hospitalist again regarding restart rate. Order to restart at 6U/kg/hr.
[2023-11-09] VITALS (12 sets, daily range): BP systolic 97–143; BP diastolic 66–92; PULSE 82–100; RESP 2–21; TEMP 36.1–36.2; O2SAT 87–98
[2023-11-09] MEDS: levalbuterol 0.63 mg/3 mL Neb INHALATION (03:54)
[2023-11-09] MEDS: ipratropium 0.5 mg/2.5 mL Neb INHALATION (03:54)
[2023-11-09] MEDS: methylPREDNISolone sod succ 40 mg/mL INJ IVP (04:02)
[2023-11-09] MEDS: piperacillin-tazobactam 3.375 GM in sodium chloride 0.9% (plus) 50 ML IV (04:03)
[2023-11-09 05:18] LABS: Hematocrit 39.5 % (36-47); Lymphocytes # 0.5 10^3/uL (0.8-4.8); Lymphocytes % 5.9 %; Mean Corpuscular HGB Conc 30.4 g/dL (30-55); Mean Corpuscular Hemoglobin 28.6 pg (27-33); Mean Corpuscular Volume 94.3 fl (85-98); Mean Platelet Volume 11.4 fL (7.4-10.4); Monocytes # 0.6 10^3/uL (0.2-0.9); Monocytes % 7.1 %; Neutrophils % 86.5 %; Nucleated Red Blood Cells % 0.2 %; Platelet Count 192 10^3/cmm (157-399); Red Blood Count 4.19 10^6/uL (3.85-5.65); Red Cell Distribution Width 16.1 % (12.1-15.1)
[2023-11-09 05:41] LABS: Partial Thromboplastin Time 31.6 SECONDS (23.9-36.7)
[2023-11-09 05:49] LABS: Anion Gap 18.7 (5-19); Blood Urea Nitrogen 48 mg/dL (8-23); Calcium 9.3 mg/dL (8.5-10.5); Carbon Dioxide 30 mmol/L (22-29); Chloride 96 mmol/L (98-107); Glomerular Filtration Rate 23.3 mL/min (90-130); Glucose 152 mg/dL (65-115); Magnesium 2.8 mg/dL (1.7-2.3); Osmolality Calculated 304 mOsm/kg (285-295); Phosphorus 5.8 mg/dL (2.5-4.5); Potassium 5.7 mmol/L (3.5-5.1); Sodium 139 mmol/L (136-145)
--- NOTE | 2023-11-09 08:00 | FL_ITS ---
WS: [id number] Modified barium swallow, 11/09/2023 Clinical Data: Oropharyngeal dysphagia Comparison: None. Fluoroscopy time: 0min 0.350216kbi # of spot films: 1 Findings: The single lateral view of the head and neck show that the patient could not be positioned for the mo dified barium swallow. Impression: Modified barium swallow could not be completed because of patient positioning.
[2023-11-09 08:24] LABS: Glucose Point of Care 149 mg/dL (70-110)
[2023-11-09 08:37] LABS: Glucose Point of Care 129 mg/dL (70-110)
[2023-11-09] MEDS: albumin 25 G/100 ML BAG 60 G IV (08:39)
[2023-11-09] MEDS: amiodarone 200 mg Tablet PO (08:40)
[2023-11-09] MEDS: sennosides-docusate Tablet 1 TAB PO (08:40)
[2023-11-09] MEDS: pantoprazole DR 40 mg Tablet PO (08:40)
[2023-11-09] MEDS: magnesium hydroxide 30 mL UDC PO (08:40)
[2023-11-09] MEDS: metoprolol tartrate 25 mg Tablet PO (08:40)
[2023-11-09 09:15] LABS: Partial Thromboplastin Time 30.5 SECONDS (23.9-36.7)
--- NOTE | 2023-11-09 09:33 | P.PN_ITS ---
Vitals/I&O/Wt Last Vital Signs Temp 97.2 F L 11/09/23 04:00 Pulse 95 11/09/23 09:00 Resp 19 H 11/09/23 09:00 BP 113/71 11/09/23 09:00 Pulse Ox 91 11/09/23 09:00 O2 Del Method Nasal Cannula 11/09/23 09:00 O2 Flow Rate 4 11/09/23 09:00 FiO2 40 11/09/23 08:00 11/08/23 11/09/23 11/09/23 22:59 06:59 14:59 Intake Total 1140 / 1767.983 296.2 / 2064.183 50 / 50 Output Total 3134 / 3134 100 / 3234 Balance -1994 / -1366.017 196.2 / -1169.817 50 / 50 HD UF 2984 ml, UO 100 ml Weight last 48 hrs Weight 144.968 kg Weight 147.3 kg Weight 148.461 kg Weight 147 kg Physical Exam 2 Urinary Catheter Management: Bautista: Cath Placed During This Visit: no Reason for Continuing Indwelling Catheter: Accurate Measurement of Urinary Output in Critically Ill Patients Data 11/09/23 04:53 11/09/23 04:53 Other Labs: albumin 4, Ca 9.3, phos 5.8, Mg 2.8 ABG Interpretation 1: 11/03/23 11/03/23 11/03/23 09:16 17:00 18:27 ABG pH 7.28 L 7.27 L 7.27 L ABG pCO2 63.0 H* 67.1 H* 67.1 H* ABG pO2 75.4 L 77.8 L 84.6 ABG HCO3 29.8 H 30.9 H 31.1 H ABG O2 Saturation 94.6 95.3 96.6 ABG Base Excess 1.5 2.3 H 2.5 H 11/04/23 11/07/23 11/07/23 08:20 04:25 09:56 ABG pH 7.35 7.19 L 7.34 L ABG pCO2 52.1 H 77.3 H* 59.9 H ABG pO2 67.6 L 82.2 72.1 L ABG HCO3 28.4 H 29.8 H 32.3 H ABG O2 Saturation 94.6 94.6 94.4 ABG Base Excess 1.7 -0.5 4.8 H 11/08/23 04:45 ABG pH 7.30 L ABG pCO2 63.8 H* ABG pO2 82.4 ABG HCO3 31.1 H ABG O2 Saturation 96.0 ABG Base Excess 3.0 H My Interpretation: primary respiratory acidosis, secondary metabolic alkalosis Other data: seen via telemedicine with assistance of RN at bedside A&P Assessment and plan (1) Acute kidney injury: Plan 1. Acute kidney injury, unresponsive to diuretics 2. Volume overload, persistent hyperkalemia after dialysis yesterday 3. Hypercapneic respiratory failure Attestations 2 Medical Necessity Statement*: see above Coding Level of Care Code Acute Code for [facility] Diagnoses Acute kidney injury N17.9
[2023-11-09 10:13] LABS: Vancomycin Random 33.8 ug/mL (20.0-40.0)
[2023-11-09 10:17] LABS: Creatine Phosphokinase 23 U/L (26-192)
--- NOTE | 2023-11-09 10:37 | PM.DDS ---
Discharge Providers DDS Date of Admission: 11/03/23 00:17 Date Summary Completed: 11/09/23 Attending Provider at Admission: Chanelle Bruner MD Time of : 10:16 Attending Provider at Discharge: Leslee Petersen MD Pronouncing Clinician: Leslee Petersen Primary Care Provider: Moshe MCPHERSON Diagnoses Hospital Diagnoses (1) Acute kidney injury: Reason for Visit Reason for Visit not feeling well Brief History: As per Dr. Bruner Lizeth Adams is a 68 year old female With a past medical history of diabetes mellitus, prescribed metformin but doesnt take it, COPD, not typically on inhalers or home oxygen, presents to the hospital with 1 to 2 months of worsening dyspnea. Patient states that at baseline she ambulates with a walker but recently because of worsening dyspnea she has barely been able to get out of bed and take a few steps. She also has orthopnea, unable to lie flat, sits in a recliner most of the day. She has checked her oxygen via pulse oximetry at home and states that it usually ranges in the 80s at rest. She often has to take multiple deep breaths to get her oxygenation to reach about 90%. She presented to the emergency room today because of worsening shortness of breath, states that she was not able to catch her breath even at rest today. Also felt palpitations. Upon ER arrival she was found to be in A-fib with RVR with heart rate ranging between 1 20-1 40s. She received a Cardizem push and was started on Cardizem infusion. She has overall gross anasarca. She reports a chronic lower extremity swelling, also worsened over the last 2 months. Denies any cough fever or chills. She is a chronic smoker, smokes about a pack every day. Summary Date and Time of Date of : 11/09/23 Time of : 10:16 Summary Summary: Patient was admitted for worsening dyspnea. Ambulating with a walker at baseline. But recently unable to get out of bed due to dyspnea. She had orthopnea unable to lay flat and sitting in recliner most of the day. She also stated she had a CPAP machine at home however never used it because she did not like the feeling of it. Also was found to be in A-fib with RVR upon admission. Overall has generalized anasarca. Worsening lower extremity swelling over the last 2 months. She is also a chronic smoker and smokes about a pack every day. During her hospital stay she was on a Cardizem drip which was later discontinued. She required BiPAP overnight for acute on chronic hypoxic hypercapnic respiratory failure in the setting of COPD and CHF exacerbation. She was noncompliant to CPAP/BiPAP. At first Lasix pushes were tried however due to not adequate urine output Lasix drip was tried subsequently. She became anuric and temp dialysis catheter was placed and dialysis was started. Patient also required multiple bicarbonate pushes for hyperkalemia. She had 2 dialysis sessions and there was plan for an additional dialysis session today. Seen this morning patient had just finished eating breakfast. She had eggs. She was doing well talking and joking. I again had a conversation with her regarding her CPAP/BiPAP and that she will be requiring it when she is leaving the hospital and that dialysis may be permanent at this point. I had a discussion with patient that she has chronic hypoxic hypercapnic respiratory failure, morbid obesity, deconditioned status, now she is difficult to diurese and now requiring dialysis, she is at high risk of morbidity and mortality, we had a discussion about her goals of care and she confirms she is DNR/DNI, we discussed her high risk of respiratory failure, her high risk of acute cardiac events, she would like to continue medical interventions for now, but wants to remain a DNR/DNI. I also had a detailed discussion with patient's daughter, advised patient's daughter that patient is critically ill in the hospital with respiratory failure, heart failure, requiring diuresis which failed then requiring dialysis, she has a high risk of morbidity or mortality, advised daughter to come to the hospital to see her mom. Patient was going to go for barium swallow today. She said that she was going to see how she does with the swallow test. Patient was taken down to x-ray and was set up in the chair. She was talking and doing well. Prior to the test being started she had acute respiratory failure and respiratory arrest. Patient was Ambu bag and put back in stretcher and brought back to ICU. She was found to be in asystole. Patient DNR/DNI therefore no CPR or intubation attempted in accordance with her wishes. Time of 1016. I called her daughter and informed her over the phone. She will be making arrangements to come to the hospital today. Additional Data Confirmation of as documented by pronouncing clinician: no pulse, no respirations, no heart sounds and pupils fixed and dilated Additional persons at bedside: nursing staff Was code activated?: No Advance directives?: No Discharge Plan Discharge Patient Disposition: Home Health Service Condition: Stable Prescriptions: No Action aspirin 325 mg tablet See Rx Instructions PO BID Rx Instructions: 5 tabs orally twice a day; Referrals: [facility] [Other] Monika Davis MD, [facility] [place] [Emergency Department] - Moshe Roberson FNP [Primary Care Provider] - Patient Instructions: Heart Failure (DC), CHF Stoplight, Opioid Safety DS Attestations Time Spent in /Discharge Care*: greater than 30 min Quality - AMI: AMI present?: No Quality - Stroke: CVA present?: No Quality - VTE: VTE present?: No Deep Vein Thrombosis/Pulmonary Embolism Present on Admission: No Coding Level of Care Code Critical Care >/= 30 minutes Critical care time (in minutes): 40 The high probability of a clinically significant, sudden or life threatening deterioration, as referenced in this documentation, required my full and direct attention, intervention and personal management. The critical care time shown is in addition to time spent performing any reported separately billable procedures and includes the following: [x] Data and vital sign review and interpretation [x] Patient assessment, examination and intervention [x] Medication orders and management [x] Patient/Family updates as able [x] Care Coordination and Documentation. Diagnoses Acute kidney injury N17.9
--- NOTE | 2023-11-09 11:57 | PC.NURSE ---
MTS, Lorie Meléndez and Shelly Mcdonald, contacted and state patient is a tissue donor and they will contact family for request. Patient moved to [facility]. Family contacted by me and want to use [facility] home in [place], [place].
--- NOTE | 2023-11-09 12:48 | PC.NURSE ---
0950 Patient taken to [facility] for barium swallow via bed on 4 LNC. Patient transferred from bed to barium swallow chair via prevalon damien by 4x staff members. Patient AAOx4, GCS 15. Patient placed into position for swallow study by imaging staff. Patient was repositioned in the chair a few times due to her body size. Patient placed 90 degrees in sitting position for study, patient states, I'm going to . Patient became increasingly less responsive, slumped down in the chair and was sliding to the floor. Patient was held by staff members and eased to the floor. Patient did not fall or hit anything. Patient placed in 45 degree sitting position, on 4LNC that was changed to 10 L NRB. Nurse called RT and Dr. Petersen to the room. Patient placed on 15 L NRB. Patient quickly progressed to respiratory arrest. Patient was placed back in the bed by staff members and Prevalon damien. Patient taken back to ICU by ICU staff, RT, and Dr. Petersen. Patient is being bagged by Ambu bag during transport back to the unit. Patient pronounced at [address] Petersen. Patient is a DNR/DNI. Family called and notified. MTS called and notified.
--- NOTE | 2023-11-09 13:35 | PC.NURSE ---
Patient and belongings taken to [facility].
--- NOTE | 2023-11-09 14:23 | PC.NURSE ---
MTS, Sheridan Long, released patient.
== END 2023-11-09 12:00 | disposition expired | DRG 189 ==
LOC: ER 22:52 → ICU 11-03 00:18 → CSU 11-05 20:09 → ICU 11-06 23:28
PROVIDERS: Hospitalist; Internal Medicine; Student in an Organized Health Care Education/Training Program; Admitting Provider Student in an Organized Health Care Education/Training Program; Emergency Provider Family Medicine; PCP Nurse Practitioner Family; Visit Provider Internal Medicine
DX: J96.22 Acute and chronic respiratory failure with hypercapnia (principal); I50.33 Acute on chronic diastolic (congestive) heart failure; J18.9 Pneumonia, unspecified organism; I13.0 Hypertensive heart and chronic kidney disease with heart failure and stage 1 through stage 4 chronic kidney disease, or unspecified chronic kidney disease; J44.1 Chronic obstructive pulmonary disease with (acute) exacerbation; J44.0 Chronic obstructive pulmonary disease with (acute) lower respiratory infection; I48.19 Other persistent atrial fibrillation; E66.2 Morbid (severe) obesity with alveolar hypoventilation; Z68.44 Body mass index [BMI] 60.0-69.9, adult; E87.29 Other acidosis; N17.9 Acute kidney failure, unspecified; J96.21 Acute and chronic respiratory failure with hypoxia; E11.65 Type 2 diabetes mellitus with hyperglycemia; E11.22 Type 2 diabetes mellitus with diabetic chronic kidney disease; N18.9 Chronic kidney disease, unspecified; T38.3X6A Underdosing of insulin and oral hypoglycemic [antidiabetic] drugs, initial encounter; F17.210 Nicotine dependence, cigarettes, uncomplicated; I27.20 Pulmonary hypertension, unspecified; N63.10 Unspecified lump in the right breast, unspecified quadrant; I46.8 Cardiac arrest due to other underlying condition; R09.2 Respiratory arrest; E83.39 Other disorders of phosphorus metabolism; Z66 Do not resuscitate; E87.5 Hyperkalemia; Z11.52 Encounter for screening for COVID-19; Z91.128 Patient's intentional underdosing of medication regimen for other reason; Z91.199 Patient's noncompliance with other medical treatment and regimen due to unspecified reason
CPT/HCPCS: 36415; 36416; 36573; 36592; 36600; 71045; 71250; 74230; 80048; 80051; 80053; 80061; 80202; 81001; 82330; 82550; 82570; 82607; 82746; 82805; 82962; 83036; 83540; 83550; 83615; 83735; 83880; 84100; 84145; 84155; 84439; 84443; 84484; 85025; 85378; 85610; 85730; 85999; 86403; 86705; 86706; 86709; 86803; 87040; 87086; 87340; 87449; 87635; 87641; 90935; 92523; 92526; 92610; 93005; 93970; 94640; 94660; 96365; 96372; 96375; 96376; 99285; C8929; J0282; J0283; J0610; J0612; J1644; J1650; J1815; J1940; J2543; J2920; J3370; J3490; J7030; J7614; J7626; J7644; P9046; Q3014; Q9956